=== PATIENT | male | born 1980 | race Caucasian/White ===

== ENCOUNTER 2021-09-22 19:21 | Inpatient (IN) | payer OTHER, SELFPAY ==
--- NOTE | ~2021-09-22 | XR_ITS ---
EXAMINATION: XR lumbar spine 2-3V DATE: 09/26/2021 12:55 INDICATION: Right-sided low back pain TECHNIQUE: Anteroposterior and lateral views of the lumbar spine, and cone-down lateral view of the l umbosacral junction were obtained. COMPARISON: 08/03/2013 FINDINGS: There are 3 mm of unchanged retrolisthesis of L5 on S1. Vertebral body alignment is otherwi se normal. There is no fracture. The vertebral body heights are maintained. There is mild loss of int ervertebral disc space height at L5-S1. IMPRESSION: 1. Mild lumbar spondylosis without acute findings or significant interval change. Reviewed, dictated and finalized at location A. IMPRESSION: 1. Mild lumbar spondylosis without acute findings or significant interval sav orr
--- NOTE | ~2021-09-22 | CT_ITS ---
EXAMINATION: CT abdomen pelvis wo con DATE: 09/25/2021 18:44 INDICATION: Abdominal and flank pain, nephrolithiasis TECHNIQUE: Computed tomography (CT) of the abdomen and pelvis was performed without intravenous contr ast. Automated exposure control and iterative reconstruction technique were employed. The dose-length product was 616.13 mGy-cm. COMPARISON: 09/22/2021. FINDINGS: Lower thorax: Bibasilar atelectasis. Liver: Diffuse fatty infiltration. Biliary/Gallbladder: Gallbladder is normal. Stable common bile duct dilation, to 9 mm. Pancreas: No mass or duct dilation. Spleen: Normal. Adrenals:No mass. Kidneys: Punctate nonobstructive right calculi. No renal mass or hydronephrosis. GI tract: No small or large bowel dilation. Normal appendix. Mesentery/Peritoneum: No ascites, mass, or free air. Retroperitoneum: No mass. Pelvis: The bladder is distended by fluid with mild wall thickening and inflammatory change. Mild pro statomegaly. Subtle 1 mm hyperdensity in the distal right ureter. Soft Tissues: Soft tissues and body wall unremarkable. Bones: No acute osseous finding. IMPRESSION: 1 mm distal right ureteral stone, without significant obstructive uropathy. Bladder wall thickening a nd inflammation, may be secondary to outlet obstruction or cystitis, correlate with urinalysis. Uncha nged hepatic steatosis and extrahepatic biliary duct dilatation. Reviewed, dictated and finalized at location K. IMPRESSION: 1 mm distal right ureteral stone, without significant obstructive uropathy. Albert dder wall thickening and inflammation, may be secondary to outlet obstruction o r cystitis, correlate with urinalysis. Unchanged hepatic steatosis and extrahep atic biliary duct dilatation.
--- NOTE | ~2021-09-22 | NM_ITS ---
EXAMINATION: NM hepatobiliary w pharm DATE: 09/25/2021 09:26 INDICATION: Elevated liver enzymes. Right upper quadrant abdominal pain. COMPARISON: None. TECHNIQUE: 5.5 mCi Tc-99m mebrofenin (Choletec) was administered intravenously. Scintigraphic images of the abdomen were obtained for one hour. 2.0 mcg sincalide (Kinevac) was administered by slow intr avenous infusion, and imaging was continued for 30 minutes. Gallbladder ejection fraction was calcula jodie by the technologist. FINDINGS: There is normal clearance of radiotracer from the blood pool. There is homogeneous tracer uptake by t he liver. Activity progresses to the gallbladder and bowel. The gallbladder ejection fraction (GBEF) is 10% (normal 10-90%, but most patient with gallbladder dysfunction have GBEF < 35% which does over lap with the normal range). IMPRESSION: 1. Gallbladder ejection fraction is at the lowest limit of normal. This could be normal but is also within the range of overlap with gallbladder dysfunction or chronic cholecystitis in the appropriate clinical setting. Reviewed, dictated and finalized at location A.
--- NOTE | ~2021-09-22 | US_ITS ---
EXAMINATION: US abdomen limited DATE: 09/23/2021 09:23 INDICATION: Abdominal pain. TECHNIQUE: Multiple grayscale and Doppler ultrasound images of limited portions of the abdomen were o btained. COMPARISON: CT abdomen and pelvis, 09/22/2021. FINDINGS: Bowel gas obscures visualization of portions of the pancreas. The visualized portions of th e pancreas are unremarkable. The liver is echogenic and enlarged to 20.2 cm. No surface nodularity. N ormal hepatopetal flow in the main portal vein. The gallbladder is normal with no abnormal wall thick ening, pericholecystic fluid or stones. The dilated common bile duct measures 1.0 cm. There was no so nographic Leung sign. IMPRESSION: 1. Steatosis and hepatomegaly. 2. Common bile duct dilation, without identification of obstructing mass or stone. Reviewed, dictated and finalized at location K. IMPRESSION: 1. Steatosis and hepatomegaly. 2. Common bile duct dilation, without identification of obstructing mass or sto ne.
--- NOTE | ~2021-09-22 | XR_ITS ---
EXAMINATION: XR sacrum coccyx min 2V INDICATION: Right lower back pain TECHNIQUE: Two views of the sacrum and coccyx are obtained on three radiographs. COMPARISON: CTs from yesterday and 11/04/2009 FINDINGS: There is mild chronic posterior subluxation of the distal coccygeal segments without change since 2009. No fracture is identified. There is mild lower lumbar spondylosis. The soft tissues are unremarkable. IMPRESSION: 1. No radiographic correlate for the patient's symptoms. Reviewed, dictated and finalized at location A.
--- NOTE | ~2021-09-22 | XR_ITS ---
EXAMINATION: XR chest 1V portable INDICATION: Epigastric abdominal pain TECHNIQUE: Portable AP chest at epigastric pain COMPARISON: 03/15/2007 FINDINGS: The lungs are free of acute opacities. There is no pleural effusion or pneumothorax. The ca rdiomediastinal silhouette is normal. IMPRESSION: 1. No acute cardiopulmonary abnormality. Reviewed, dictated and finalized at location A.
--- NOTE | ~2021-09-22 | MR_ITS ---
EXAMINATION: MR MRCP wo/w con/w 3D wo ind DATE: 09/23/2021 13:36 INDICATION: Epigastric pain TECHNIQUE: Magnetic resonance imaging (MRI) of the abdomen was performed without and with intravenous contrast. Sequences included coronal T2-weighted SS-FSE ARC, coronal T2-weighted FS SS-FSE, coronal T2-weighted 2D FS FIESTA, Water:Coronal LAVA-Flex, sagittal T2-weighted SS-FSE ARC, axial SSFSE ARC, axial 3D DualEcho, axial DWI B=600, axial T1-weighted LAVA, FAT:Coronal LAVA-Flex, and coronal in and opposed phase LAVA-Flex. Thick-slab T2-weighted FRFSE-XL images were obtained for magnetic resonance cholangiopancreatography (MRCP). Maximum intensity projection 3-D reconstructions of the volumetric data were created by the technologist. Postcontrast sequences included a time course of axial T1-weig hted LAVA, FAT:Coronal LAVA-Flex, coronal in and opposed phase LAVA-Flex, and Water:Coronal LAVA-Flex . COMPARISON: CT from yesterday CONTRAST: Multihance, with 20 cc FINDINGS: ABDOMEN MRI: There is loss of hepatic parenchymal signal on opposed phase imaging, consistent with he patic steatosis. There is a 5 mm cyst in the left hepatic lobe. A focal area of fatty sparing is note d in the right hepatic lobe corresponding to the area of soft tissue attenuation seen on the comparis on CT. The spleen, pancreas, gallbladder, and adrenal glands are normal. There are no pathologically enlarged abdominal lymph nodes. No dilated loops of bowel are evident. No abnormal enhancement is pre sent after contrast administration. ABDOMEN MRCP: The mildly dilated common bile duct measures up to 9 mm. No choledocholithiasis is iden tified. There is smooth tapering of the distal common bile duct in the head of the pancreas. The panc reatic duct is normal in course and caliber. IMPRESSION: 1. Mild enlargement of the common bile duct without evidence of mass or stricture. 2. Diffuse hepatic steatosis. Reviewed, dictated and finalized at location A. IMPRESSION: 1. Mild enlargement of the common bile duct without evidence of mass or strictu re. 2. Diffuse hepatic steatosis.
--- NOTE | ~2021-09-22 | CT_ITS ---
EXAMINATION: CT chest abdomen pelvis w con DATE: 09/22/2021 21:01 INDICATION: Abdominal and chest pain TECHNIQUE: Transaxial computed tomographic images of the chest, abdomen, and pelvis were obtained aft er the administration of 100 cc of Omnipaque 300 intravenous contrast. The dose-length product (DLP) was 944.95 mGy-cm. Automated exposure control and iterative reconstruction technique were employed. COMPARISON: 11/14/2009 FINDINGS: CHEST CT: The lungs are free of acute opacities. No pleural effusion or pneumothorax. No pathologically enlarge d thoracic lymph nodes are identified. The heart size is normal. There is mild bilateral gynecomastia . A small amount of fluid is noted in the esophagus. ABDOMEN/PELVIS CT: The liver is diffusely low in attenuation when compared with the spleen, consistent with hepatic stea tosis. There is a 11 mm area of soft tissue attenuation in the right hepatic lobe which could reflect focal fatty sparing. The mildly enlarged common bile duct measures up to 9 mm. The spleen, pancreas, gallbladder, and adrenal glands are normal. There are punctate nonobstructing stones of the right ki dney. No pathologically enlarged abdominal or pelvic lymph nodes are identified. There is no free int raperitoneal gas or evidence of bowel obstruction. The appendix is normal. There is mild lumbar spond ylosis. IMPRESSION: 1. Diffuse hepatic steatosis. 2. Mild enlargement of the common bile duct of unclear etiology. 3. No acute findings in the chest. Reviewed, dictated and finalized at location F.
[2021-09-22 19:25] VITALS: BP 133/99; PULSE 120; RESP 20; TEMP 36.7; O2SAT 98
--- NOTE | 2021-09-22 19:47 | ED.NAVMDI ---
HPI - Nausea/Vomiting/Diarrhea General Chief complaint: Nausea/Vomiting/Diarrhea Stated complaint: vomiting and diarrhea Time Seen by Provider: 09/22/21 19:47 History of Present Illness HPI Narrative: Patient is a 41-year-old male with a history of hypertension presenting to the emergency department for evaluation of a 5-week history of worsening right lower quadrant abdominal pain with radiation to the right flank. Described as sharp, cramping in nature associated with abdominal distention and diarrhea. Patient denies any blood or mucus present in his stool. He denies history of abdominal surgery, ulcerative colitis, Crohn's disease. He denies weight loss, night sweats. No known history of colon cancer. Patient also endorses mild, aching chest pressure which has been intermittent over the past 5 weeks. Patient has not sought evaluation for this pain. He states that his pain increased this morning into this afternoon, prompting his visit this evening. He has been unable to tolerate oral intake today with several episodes of nonbloody, nonbilious emesis. Patient denies dysuria or hematuria. He reports subjective fever, chills. He denies recent sick contacts. Related Data Home Medications Medication Instructions Recorded Confirmed memantine 10 mg tablet 10 mg PO BID 03/09/20 06/22/21 protriptyline 5 mg tablet See Rx Instructions PO TID 03/09/20 06/22/21 Allergies Allergy/AdvReac Type Severity Reaction Status Date / Time No Known Allergies Allergy Mild Verified 06/22/21 10:22 Review of Systems Review of Systems: CONSTITUTIONAL: Reports fever and chills EYES: Denies visual changes, redness, or discharge. ENT: Denies rhinorrhea, congestion, sore throat, or otalgia. CARDIOVASCULAR: Reports intermittent aching chest pain without palpitations or edema RESPIRATORY: Denies cough or dyspnea. GASTROINTESTINAL: Reports abdominal pain with nausea, vomiting, diarrhea GENITOURINARY: Denies dysuria or hematuria. SKIN: Denies rash or itching. MUSCULOSKELETAL: Reports right flank pain without other joint pain or myalgias NEUROLOGIC: Denies headache, numbness, or weakness. [facility] Past Medical History Medical History (Updated 09/22/21 @ 22:53 by Colette Miner MD) Calculus of kidney Chronic daily headache Dyspepsia Elevated liver enzymes Essential (primary) hypertension Hearing loss Memory loss Sleep disorder, shift-work Trigeminal neuralgia of right side of face Family History Family History Grandparent Diabetes mellitus Mother Hypertension Family history of malignant neoplasm of breast Sibling Hypertension Father Family history of renal cell carcinoma Social History Social History Second hand tobacco smoke exposure: No Smoking end date: 04/01/11 Alcohol intake: current Alcohol use details: Occasional Substance use type: does not use Exam Narrative: GENERAL: Awake, alert, conversant, uncomfortable appearing HEAD: Normocephalic, atraumatic. EYES: PERRLA and EOMI. ENT: Nares clear, no rhinorrhea or epistaxis. Mucous membranes moist. NECK: Supple. CHEST: No respiratory distress, breathing even and non labored HEART: Tachycardic rate, sinus rhythm ABDOMEN:Mild distension, no tenderness throughout, hypoactive bowel sounds, no rigidity or guarding EXTREMITIES: Normal range of motion. No edema. SKIN: Warm, dry, no rash. NEURO:No focal deficits. Alert and oriented x3 Course Vital Signs Vital signs: Vital Signs Temperature 36.7 C 09/22/21 19:25 Pulse Rate 120 H 09/22/21 19:25 Respiratory Rate 20 09/22/21 19:25 Blood Pressure 133/99 H 09/22/21 19:25 Pulse Oximetry 98 09/22/21 19:25 Oxygen Delivery Room Air 09/22/21 19:25 Temperature 36.7 C 09/22/21 19:25 Pulse Rate 120 H 09/22/21 19:25 Respiratory Rate 20 09/22/21 19:25 Blood Pressure 133/99 H 09/22/21 1
--- NOTE | 2021-09-22 20:09 | ECG_ITS ---
Measurements Intervals [place] Rate: 106 P: 55 PA: 140 QRS: 44 QRSD: 96 T: 45 QT: 318 QTc: 422 Interpretive Statements SINUS TACHYCARDIA POSSIBLE LEFT ATRIAL ENLARGEMENT [-0.1mV P WAVE IN V1/V2] LEFTWARD AXIS ABNORMAL RHYTHM ECG NO PREVIOUS ECG AVAILABLE FOR COMPARISON Electronically Signed On 09-23-2021 7:51:31 CDT by Holland Wilhelm M.D.
[2021-09-22] MEDS: ONDANSETRON INJ 4 MG/2 ML VIAL IV PUSH (20:21)
[2021-09-22] MEDS: SODIUM CHLORIDE 0.9% IV 1,000 ML 999 ML IV CONT ×2 (20:21→21:54)
[2021-09-22] MEDS: MORPHINE SULFATE (*CRX) 4 MG/ML INJ IV PUSH (20:21)
[2021-09-22 20:32] LABS: Basophils Percent Auto 0.2 % (0.2-1.2); Eosinophils Absolute Auto 0.1 K/mm3 (0-0.3); Eosinophils Percent Auto 0.8 % (0-4.4); Hematocrit 48.1 % (42.0-52.0); Hemoglobin 16.4 g/dL (14.0-18.0); Immature Granulocyte Absolute 0.04 K/mm3 (0.00-0.031); Immature Granulocyte Percent A 0.4 % (0-0.5); Lymphocytes Absolute Auto 0.42 K/mm3 (0.9-3.2); Lymphocytes Percent Auto 3.8 % (18.3-44.2); Mean Corpuscular HGB Conc 34.1 g/dl (32-36); Mean Corpuscular Hemoglobin 31.5 pg (26-34); Mean Corpuscular Volume 92.5 fl (80-100); Mean Platelet Volume 9.3 fl (7.4-10.4); Monocytes Absolute Auto 0.6 K/mm3 (0.1-0.6); Monocytes Percent Auto 5.3 % (2.6-8.5); Neutrophils Percent Auto 89.5 % (45.5-73.1); Platelet Count Result 224 k/mm3 (150-375); Red Cell Distribution Width 12.9 % (11.5-14.5); White Blood Count 11.1 K/mm3 (4.5-10.0)
[2021-09-22 20:42] LABS: Alanine Aminotransferase 203 U/L (6-50); Albumin Level 4.9 g/dL (3.5-5.1); Alkaline Phosphatase 76 U/L (38-126); Anion Gap 11 mmol/L (8-16); Aspartate Amino Transferase 86 U/L (17-59); Bilirubin,Total 1.2 mg/dL (0.2-1.3); Blood Urea Nitrogen 16 mg/dL (9-20); Calcium 9.2 mg/dL (8.4-10.2); Carbon Dioxide 25 mmol/L (22-30); Chloride 98 mmol/L (98-107); Estimated CRCL calculation 96 ml/min; Estimated Glomerular Filt Rate > 60; Glucose 138 mg/dL (65-110); Lipase 72 U/L (23-300); Potassium 4.4 mmol/L (3.4-5.0); Sodium 134 mmol/L (137-145)
[2021-09-22 20:44] LABS: Appearance Urine Clear (Clear); Bilirubin Urine 1+ (Negative); Blood Urine Trace-lysed (Negative); Color Urine Yellow (Yellow); Glucose Urine UA Negative (Negative); Ketones Urine Trace mg/dL (Negative); Leukocyte Esterase Ur Negative LEU/UL (Negative); Nitrate Urine Negative (Negative); Protein Urine Negative (Negative); Urobilinogen Urine 0.2 mg/dL (<2.0); pH Urine 5.5 (5.0-9.0)
[2021-09-22 20:47] LABS: Mucus Urine Rare /lpf; RBC Urine 0-2 /hpf (0-2); WBC Urine 0-3 /hpf
[2021-09-22 20:53] LABS: Add Urine Microscopic? YES
[2021-09-22 20:59] LABS: Troponin I < 0.012 ng/mL (0.000-0.034)
--- NOTE | 2021-09-22 22:53 | PM.IMHP ---
H&P: HPI History of Present Illness Date/Time: 09/22/21 22:53 Chief Complaint: Abdominal pain Narrative: This is a 41-year-old male with past medical history significant for hypertension, cluster headache, patient presents to the emergency room due to nausea, vomiting, abdominal pain which is in the epigastric area with radiation to the left quadrant, patient denies any fevers, rigors, chills, coffee-ground emesis, bright red blood per rectum, hematemesis, patient has been unable to keep anything down this has been happening for in the last day or so. Preliminary workup was significant for CT of abdomen and pelvis with enlargement of common bile duct, and hepatic steatosis. Patient rates the pain at 9/10 in intensity. Patient denies any weight loss, any changes in his stool character. Patient has been admitted for further evaluation, management and treatment. Review of Systems Review of Systems: Nausea, vomiting, epigastric abdominal pain. Constitutional: Constitutional: Denies chills, Denies fever(s) and Denies night sweats Eyes: Eyes: Denies change in vision ENT: Denies dysphagia, Denies vertigo, Denies dizziness and Denies odynophagia Cardiovascular: Cardiovascular: Denies chest pain, Denies lightheadedness, Denies palpitations and Denies dyspnea on exertion Respiratory: Respiratory: Denies chest congestion, Denies cough and Denies excessive phlegm production Gastrointestinal: Gastrointestinal: Reports abdominal pain, Denies melena, Denies hematochezia, Denies coffee ground emesis, Denies dyspepsia, Denies heartburn, Reports nausea and Reports vomiting Genitourinary: Genitourinary: Reports no additional male genitourinary complaints and Reports as per HPI Musculoskeletal: Musculoskeletal: Reports back pain, Denies myalgias and Denies joint swelling Integumentary/Breasts: Skin/Breast: Denies rash Neurologic: Denies focal weakness and Denies Sensory deficit (Neuro) Psychiatric: Psychiatric: Reports no additional psychiatric complaints and Reports as per HPI Endocrine: Endocrine: Denies cold intolerance, Denies fatigue, Denies heat intolerance, Denies polyphagia, Denies polydipsia, Denies polyuria and Denies palpitations Hematologic/Lymphatic: Hematologic/Lymphatic: Reports no additional hematologic/lymphatic complaints and Reports as per HPI Allergic/Immunologic: Allergic/Immunologic: Reports no additional allergic/immunologic complaints and Reports as per HPI [facility] Past Medical History Medical History (Updated 09/23/21 @ 03:07 by Ricky Avery MD) Calculus of kidney Chronic daily headache Dyspepsia Elevated liver enzymes Essential (primary) hypertension Hearing loss Memory loss 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 carcinoma Social History Social History Smoking packs per day: 1 Smoking cigarettes per day: 20.0 Years smoked: 7 Smoking pack-years: 7.00 Smoking status: Former smoker Tobacco type: cigarettes Second hand tobacco smoke exposure: No Smoking end date: 04/01/11 Alcohol intake: current Drinks per week: 30 Alcohol use details: Occasional Substance use: never Substance use type: does not use Last use: 09/22/21 Spiritual care concerns: No Meds Home Medications and Allergies Home Medications Medication Instructions Recorded Confirmed Type memantine 10 mg tablet 10 mg PO BID 03/09/20 09/23/21 History protriptyline 5 mg tablet 5 mg PO DAILY 03/09/20 09/23/21 History hydrochlorothiazide 12.5 mg tablet 12.5 mg PO DAILY #90 tabs 02/15/21 09/23/21 Rx atenolol 100 mg tablet 100 mg PO DAILY 09/23/21 0
--- NOTE | 2021-09-22 23:01 | ECG_ITS ---
Measurements Intervals [place] Rate: 108 P: 51 AL: 161 QRS: 2 QRSD: 92 T: 21 QT: 319 QTc: 429 Interpretive Statements SINUS TACHYCARDIA POSSIBLE LEFT ATRIAL ENLARGEMENT [-0.1mV P WAVE IN V1/V2] ABNORMAL RHYTHM ECG COMPARED TO ECG 09/22/2021 20:50:57 NO SIGNIFICANT CHANGES Electronically Signed On 09-23-2021 7:56:11 CDT by Holland Wilhelm M.D.
[2021-09-22] MEDS: HYDROmorphone HCL INJ (*CRX) 1 MG/ML SYR 0.5 MG IV PUSH (23:08)
[2021-09-22] MEDS: LACTATED RINGERS 1,000 ML 125 ML IV CONT (23:14)
[2021-09-23] VITALS (9 sets, daily range): BP systolic 117–154; BP diastolic 77–97; PULSE 76–106; RESP 17–18; TEMP 36.2–37.2; O2SAT 95–100; BMI 28.4; BMI 28.1
[2021-09-23 00:04] LABS: Troponin I < 0.012 ng/mL (0.000-0.034)
--- NOTE | 2021-09-23 00:15 | ADMGEN ---
This patient, Kiko Monroy, was admitted to 2 Medical Room 257-01. Patient/family oriented to hospital policies and general routines including ID bracelet, bed and alarms, visiting hours, pain management, procedures, bathroom and other care routines, personal items, smoking policy, room service/diet, and visiting hours. Information on how to activate the Rapid Response Team has been discussed. Patient/Family are encouraged to report perceived risks to care and to ask questions if they do not understand what they are told or what they should do.
[2021-09-23] MEDS: MORPHINE SULFATE (*CRX) 4 MG/ML INJ IV PUSH (01:11)
[2021-09-23] MEDS: HYDROmorphone HCL INJ (*CRX) 1 MG/ML SYR IV PUSH ×4 (08:48→22:57)
[2021-09-23] MEDS: LACTATED RINGERS 1,000 ML 125 ML IV CONT ×2 (08:51→18:15)
--- NOTE | 2021-09-23 11:32 | PM.IMPN ---
Progress Note: A&P Assessment and Plan (1) Acute epigastric pain: Code(s): R10.13 - Epigastric pain <Yesi Anand MARLOMarilee - Last Filed: 09/23/21 11:51> Status: Acute <MARLO GilbertBlaireC - Last Filed: 09/23/21 11:51> Assessment and Plan: patient reports significant abdominal pain that improves with pain medication - CT of abdomen pelvis mentions hepatic steatosis and mild common bile duct dilation - serum bilirubin is normal as well as alk phos but he does have 1+ bilirubin in his urine. AST and ALT elevated. Lipase normal. - right upper quadrant ultrasound pending - consider MRCP - due to his night sweats and chills, will order blood cultures. will hold off on antibiotics as there does not seem to be any other sign of infection at this time. if he develops a temperature this can be re-evaluated - GI consult - can advance diet as tolerated after GI evaluation. Patient was told that he was getting an endoscopy this morning according to what he was told in the ER? <Yesi AnandARTEM - Last Filed: 09/23/21 11:51> (2) Moderate nausea and vomiting: Code(s): R11.2 - Nausea with vomiting, unspecified <Yesi AnandARTEM - Last Filed: 09/23/21 11:51> Status: Acute <Yesi AnandARTEM - Last Filed: 09/23/21 11:51> Assessment and Plan: improved <Yesi AnandARTEM - Last Filed: 09/23/21 11:51> (3) Transaminitis: Code(s): R74.01 - Elevation of levels of liver transaminase levels <Yesi AnandARTEM - Last Filed: 09/23/21 11:51> Status: Acute <Yesi AnandARTEM - Last Filed: 09/23/21 11:51> Assessment and Plan: Likely secondary to hepatic steatosis - patient has a history of ALT abnormality back in 2018 <Yesi LoveARTEM mclaughlin - Last Filed: 09/23/21 11:51> (4) Essential (primary) hypertension: Code(s): I10 - Essential (primary) hypertension <Yesi AJovanna Lovemus, PA-C - Last Filed: 09/23/21 11:51> Status: Acute <Yesi AJovanna Lovemus, PA-C - Last Filed: 09/23/21 11:51> Assessment and Plan: last blood pressure 117/77 - will resume home medications <Yesi AJovanna Lovemus, PA-C - Last Filed: 09/23/21 11:51> (5) Sleep disorder, shift-work: Code(s): G47.26 - Circadian rhythm sleep disorder, shift work type <Yesi AJovanna Cadmus, PA-C - Last Filed: 09/23/21 11:51> Status: Acute <Yesi AJovanna Cadmus, PA-C - Last Filed: 09/23/21 11:51> Assessment and Plan: Unchanged <Yesi AJovanna Cadmus, PA-C - Last Filed: 09/23/21 11:51> (6) Trigeminal neuralgia of right side of face: Code(s): G50.0 - Trigeminal neuralgia <Yesi AJovanna Cadmus, PA-C - Last Filed: 09/23/21 11:51> Status: Acute <Yesi AJovanna Cadmus, PA-C - Last Filed: 09/23/21 11:51> Assessment and Plan: Unchanged <Yesi AJovanna Cadmus, PA-C - Last Filed: 09/23/21 11:51> Assessment and Plan: patient was placed on telemetry due to tachycardia and possible chest pain. Tachycardia was likely due to pain. Troponins negative x2 in no further chest pain. No further workup is indicated at this time and can be re-evaluated if he develops pain. Cardiac etiology seems less likely <Yesi Bernardo Lovemus, PA-C - Last Filed: 09/23/21 11:51> Additional Plan I, Ev Petersen MD, have not seen or examined this patient. The patient was seen and examined by the midlevel/TURBINE ATTENDANT/PA. The plan of care was formulated and executed independently by the midlevel/TURBINE ATTENDANT/PA. <Ev Petersen MD - Last Filed: 09/28/21 00:41> Time Spent With Patient Time with patient: 25 - 35 minutes <Yesi Angie. Cadmus, PA-C - Last Filed: 09/23/21 11:51> Subjective Date/time seen: 09/23/21 11:32 <Yesi Anand PA-C - Last Filed: 09/23/21 11:51> Interval history: Pt is a 41 y/o male here for RUQ abdominal pain with nausea and vomiting. Pt was seen today with family at bedside. He states his RUQ pain is bett
[2021-09-23] MEDS: FAMOTIDINE 20 MG/2 ML VIAL IV PUSH ×2 (13:48→21:43)
[2021-09-23] MEDS: atenoloL 50 MG TABLET 100 MG PO (13:48)
--- NOTE | 2021-09-23 14:37 | WPDGICN ---
Assessment and Plan Assessment and plan (1) Moderate nausea and vomiting: Code(s): R11.2 - Nausea with vomiting, unspecified Status: Acute Assessment and Plan: new onset antiemetics, ppi pending mrcp may need egd +/- colonoscopy if mrcp unremarkable (also has been having lower abdominal pain for few months) (2) Acute epigastric pain: Code(s): R10.13 - Epigastric pain Status: Acute Assessment and Plan: medical treatment (3) Transaminitis: Code(s): R74.01 - Elevation of levels of liver transaminase levels Status: Acute Assessment and Plan: h/o fatty liver will get hepatitis panel pending MRCP to assess biliary system +/- HIDA scan based on clinical course (4) Common bile duct dilatation: Code(s): K83.8 - Other specified diseases of biliary tract Status: Acute Assessment and Plan: MRCP pending (5) Dyspepsia: Code(s): R10.13 - Epigastric pain Status: Acute GI Consult Note Consult date/time: 09/23/21 14:37 Reason for consult: abdominal pain, elevated liver enzymes HPI: Kiko Monroy is a 41 year old male with past medical history significant for hypertension, cluster headache. He came to the emergency room due to nausea, vomiting, abdominal pain. He has been having lower abdominal pain for 4-5 months actually about 3 weeks ago also had intense pain and lower abdomen but resolved, pain has been intermittent but he came this time with worsening epigastric area with radiation to the left quadrant. This time associated with n/v and diarrhea. CT of abdomen and pelvis reviewed and showed mild enlargement of common bile duct 9 mm, and hepatic steatosis.? Patient rates the pain at 9/10 in intensity. transaminases 80-200, normal bili. Denies hepatitis. Review of Systems Review of Systems: Nausea, vomiting, epigastric abdominal pain. Constitutional: Constitutional: Denies chills, Denies fever(s) and Denies night sweats Eyes: Eyes: Denies change in vision ENT: Denies dysphagia, Denies vertigo, Denies dizziness and Denies odynophagia Cardiovascular: Cardiovascular: Denies chest pain, Denies lightheadedness, Denies palpitations and Denies dyspnea on exertion Respiratory: Respiratory: Denies chest congestion, Denies cough and Denies excessive phlegm production Gastrointestinal: Gastrointestinal: Reports abdominal pain, Denies melena, Denies hematochezia, Denies coffee ground emesis, Denies dyspepsia, Denies heartburn, Reports nausea and Reports vomiting Genitourinary: Genitourinary: Reports no additional male genitourinary complaints and Reports as per HPI Musculoskeletal: Musculoskeletal: Reports back pain, Denies myalgias and Denies joint swelling Integumentary/Breasts: Skin/Breast: Denies rash Neurologic: Denies focal weakness and Denies Sensory deficit (Neuro) Psychiatric: Psychiatric: Reports no additional psychiatric complaints and Reports as per HPI Endocrine: Endocrine: Denies cold intolerance, Denies fatigue, Denies heat intolerance, Denies polyphagia, Denies polydipsia, Denies polyuria and Denies palpitations Hematologic/Lymphatic: Hematologic/Lymphatic: Reports no additional hematologic/lymphatic complaints and Reports as per HPI Allergic/Immunologic: Allergic/Immunologic: Reports no additional allergic/immunologic complaints and Reports as per HPI PMFSH Past Medical History Medical History (Updated 09/23/21 @ 03:07 by Ricky Avery MD) Calculus of kidney Chronic daily headache Dyspepsia Elevated liver enzymes Essential (primary) hypertension Hearing loss Memory loss 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
[2021-09-24 04:06] VITALS: BP 122/61; PULSE 69; RESP 17; TEMP 36.2; O2SAT 98
[2021-09-24] MEDS: LACTATED RINGERS 1,000 ML 125 ML IV CONT ×2 (04:09→17:13)
[2021-09-24] MEDS: HYDROmorphone HCL INJ (*CRX) 1 MG/ML SYR IV PUSH ×5 (05:06→23:45)
[2021-09-24 05:42] LABS: Basophils Percent Auto 0.5 % (0.2-1.2); Eosinophils Absolute Auto 0.2 K/mm3 (0-0.3); Eosinophils Percent Auto 4.6 % (0-4.4); Hematocrit 40.6 % (42.0-52.0); Hemoglobin 13.7 g/dL (14.0-18.0); Immature Granulocyte Absolute 0.01 K/mm3 (0.00-0.031); Immature Granulocyte Percent A 0.3 % (0-0.5); Lymphocytes Absolute Auto 1.17 K/mm3 (0.9-3.2); Lymphocytes Percent Auto 31.5 % (18.3-44.2); Mean Corpuscular HGB Conc 33.7 g/dl (32-36); Mean Corpuscular Hemoglobin 31.6 pg (26-34); Mean Corpuscular Volume 93.8 fl (80-100); Mean Platelet Volume 9.2 fl (7.4-10.4); Monocytes Absolute Auto 0.6 K/mm3 (0.1-0.6); Monocytes Percent Auto 15.4 % (2.6-8.5); Neutrophils Absolute Auto 1.8 K/mm3 (1.3-6.7); Neutrophils Percent Auto 47.7 % (45.5-73.1); Platelet Count Result 172 k/mm3 (150-375); Red Blood Count 4.33 M/mm3 (4.6-6.20); Red Cell Distribution Width 12.5 % (11.5-14.5); White Blood Count 3.7 K/mm3 (4.5-10.0)
[2021-09-24 05:53] LABS: Alanine Aminotransferase 130 U/L (6-50); Albumin Level 3.8 g/dL (3.5-5.1); Alkaline Phosphatase 55 U/L (38-126); Anion Gap 4 mmol/L (8-16); Aspartate Amino Transferase 52 U/L (17-59); Bilirubin,Total 0.5 mg/dL (0.2-1.3); Blood Urea Nitrogen 7 mg/dL (9-20); Calcium 8.4 mg/dL (8.4-10.2); Carbon Dioxide 29 mmol/L (22-30); Chloride 102 mmol/L (98-107); Estimated CRCL calculation 106 ml/min; Estimated Glomerular Filt Rate > 60; Glucose 96 mg/dL (65-110); Lipase 87 U/L (23-300); Sodium 135 mmol/L (137-145)
[2021-09-24 06:32] LABS: Hepatitis B Surface Antigen Negative (Negative)
[2021-09-24 06:37] LABS: HAV RESULT Negative (Negative); Hepatitis B Core IgM Result Negative (Negative)
[2021-09-24 06:44] LABS: HIV 1/2 Ab P24 Ag Result Negative (Negative)
[2021-09-24 06:49] LABS: Hepatitis C Virus Antibody Negative (Negative)
[2021-09-24 08:26] VITALS: PULSE 69
[2021-09-24] MEDS: atenoloL 50 MG TABLET 100 MG PO (08:26)
[2021-09-24] MEDS: FAMOTIDINE 20 MG/2 ML VIAL IV PUSH ×2 (08:27→20:26)
--- NOTE | 2021-09-24 13:16 | WPDGIPROGNO ---
Progress Note: A&P Assessment and Plan (1) Right lateral abdominal pain: Code(s): R10.9 - Unspecified abdominal pain Status: Acute Assessment and Plan: mrcp reviewed, no stones liver enzymes coming down, he also admits drinking alcohol hepatitis panel negative will get HIDA scan but also egd/colonoscopy to rule out any other gi condition (2) Transaminitis: Code(s): R74.01 - Elevation of levels of liver transaminase levels Status: Acute Assessment and Plan: hida scan (3) Moderate nausea and vomiting: Code(s): R11.2 - Nausea with vomiting, unspecified Status: Acute Assessment and Plan: improved (4) Alcohol use: Code(s): Z72.89 - Other problems related to lifestyle Status: Acute Assessment and Plan: cessation (5) Elevated liver enzymes: Code(s): R74.8 - Abnormal levels of other serum enzymes Status: Acute Subjective Date/time seen: 09/24/21 13:16 Interval history: still with pain in ruq/rlq with radiation to Rt back, MRCP reviewed with him and , never had scopes. Patient says that he drinks moderately Review of Systems Review of Systems: Nausea, vomiting, epigastric abdominal pain. Constitutional: Constitutional: Denies chills, Denies fever(s) and Denies night sweats Eyes: Eyes: Denies change in vision ENT: Denies dysphagia, Denies vertigo, Denies dizziness and Denies odynophagia Cardiovascular: Cardiovascular: Denies chest pain, Denies lightheadedness, Denies palpitations and Denies dyspnea on exertion Respiratory: Respiratory: Denies chest congestion, Denies cough and Denies excessive phlegm production Gastrointestinal: Gastrointestinal: Reports abdominal pain, Denies melena, Denies hematochezia, Denies coffee ground emesis, Denies dyspepsia, Denies heartburn, Reports nausea and Reports vomiting Genitourinary: Genitourinary: Reports no additional male genitourinary complaints and Reports as per HPI Musculoskeletal: Musculoskeletal: Reports back pain, Denies myalgias and Denies joint swelling Integumentary/Breasts: Skin/Breast: Denies rash Neurologic: Denies focal weakness and Denies Sensory deficit (Neuro) Psychiatric: Psychiatric: Reports no additional psychiatric complaints and Reports as per HPI Endocrine: Endocrine: Denies cold intolerance, Denies fatigue, Denies heat intolerance, Denies polyphagia, Denies polydipsia, Denies polyuria and Denies palpitations Hematologic/Lymphatic: Hematologic/Lymphatic: Reports no additional hematologic/lymphatic complaints and Reports as per HPI Allergic/Immunologic: Allergic/Immunologic: Reports no additional allergic/immunologic complaints and Reports as per HPI Exam Const: General: comfortable, no acute distress, well developed, alert and awake Nutritional Appearance: average body habitus Orientation/consciousness: patient oriented x3 HENMT: Head: normal to inspection, normocephalic and atraumatic Ears: hearing grossly normal bilaterally Face and sinus: normal facial exam Eyes: General: appearance normal, both eyes and all related structures Pupils: Equal, round and reactive pupils present EOM: EOMs intact bilaterally Neck: Neck: full ROM Lymphatic: no lymphadenopathy noted Resp: Effort & Inspection: normal respiratory effort and able to speak in complete sentences Auscultation: clear to auscultation bilaterally Cardio: Jugular venous distension: no JVD Rate: regular rate Rhythm: regular rhythm Heart sounds: S1 normal heart sound present and S2 normal heart sound present GI: Inspection: normal to inspection GI Palp: Yes Soft to palpation, Yes Tenderness to palpation present (GI) (mild ttp in ruq, no rebound) and No Guarding due to palpation present (GI) Skin: Rashes: no rashes Wounds: no wounds Neuro: General: patient oriented x3 and CN's II-XI intact bilaterally Cranial nerves: Yes CN's II-XII intact bilaterally Cognition (Neuro): normal cognition Speech:
--- NOTE | 2021-09-24 13:58 | PHAR ---
DRUG NAME: PROTRIPTYLINE HYDROCHLORIDE INGREDIENTS: PROTRIPTYLINE HYDROCHLORIDE -- 10 MG RELATED DOCUMENTS: DRUGDEX EVALUATIONS - PROTRIPTYLINE COLOR: WHITE SHAPE: [place] IMPRINT: [id number] FORM: ORAL TABLET
[2021-09-24 14:00] VITALS: BP 167/99; PULSE 84; RESP 16; TEMP 36.2; O2SAT 99
--- NOTE | 2021-09-24 15:10 | PM.IMPN ---
Progress Note: A&P Assessment and Plan (1) Acute epigastric pain: Code(s): R10.13 - Epigastric pain Status: Acute Assessment and Plan: Patient reports significant abdominal pain that improves with pain medication - CT of abdomen pelvis mentions hepatic steatosis and mild common bile duct dilation - serum bilirubin is normal as well as alk phos but he does have 1+ bilirubin in his urine. AST and ALT elevated. Lipase normal. - abdominal ultrasound with steatosis and hepatomegaly, common bile duct dilation without obstructing mass or stone - MRCP also with hepatic steatosis and mild enlargement of the common bile duct - HIDA scan pending - Given complaints of sweats/chills, he was started on IV Zosyn on 09/23. Continue at this time pending further workup. Blood cultures pending. Remains afebrile, no leukocytosis. - Full liquid diet. NPO at midnight for EGD/colonoscopy tomorrow (2) Moderate nausea and vomiting: Code(s): R11.2 - Nausea with vomiting, unspecified Status: Acute Assessment and Plan: Resolved today - Plan as above (3) Transaminitis: Code(s): R74.01 - Elevation of levels of liver transaminase levels Status: Acute Assessment and Plan: Likely secondary to diffuse hepatic steatosis - Patient also reports regular alcohol use (30 drinks per week) - AST normalized today. ALT improved - Alk-phos within normal limits. Normal total bilirubin - Dietary and lifestyle changes - Alcohol reduction - Hepatitis panel negative (4) Essential (primary) hypertension: Code(s): I10 - Essential (primary) hypertension Status: Acute Assessment and Plan: Blood pressures have been slightly elevated, likely due to pain. Last BP 167/99 - Continue home atenolol and hydrochlorothiazide Subjective Date/time seen: 09/24/21 15:10 Interval history: Date of service: 09/24/2021 Kiko Monroy is a 41-year-old male with a history of hypertension who is seen in follow-up for abdominal pain, nausea, vomiting. He is still having pretty significant abdominal discomfort today. States his pain starts in the right flank and radiates all the way across the epigastrium. This pain is been off and on for about 5 weeks, occurring intermittently with associated loss of appetite. About 2 days ago he developed diarrhea and emesis followed by severe abdominal cramping, sweats, and chills. His notes that over the past couple days he has been appearing very pale and his color has been off. Today he continues to endorse right flank and epigastric pain but he is a bit more comfortable at this time. Denies nausea or vomiting at this time. He is tolerating liquids. His last bowel movement was 2 days ago when he had diarrhea. No further episodes of diarrhea. He states his urine has been somewhat foamy for several days to weeks. He denies dysuria, hematuria, urgency, or frequency. Notes that approximately 2 weeks ago he had a sore throat and was treated with amoxicillin for presumed strep throat, though he did not have a test. He denies sore throat or any upper respiratory symptoms at this time. Review of Systems Review of Systems: All systems reviewed & are unremarkable except as noted in HPI and below Exam Narrative: General: Well-nourished, well-appearing 41-year-old male, sitting up in bed, comfortable, NARD Neuro: awake, alert and oriented x4, speech clear, no focal neuro deficits noted HEENMT: normocephalic, atraumatic, EOMI, sclerae anicteric Respiratory: clear to auscultation bilaterally, nonlabored breathing Cardio: regular rate, regular rhythm with S1-S2 Abdomen: nondistended, normoactive bowel sounds, soft, diffusely tender to palpation, no rigidity or guarding Extremities: no edema, erythema, or tenderness to palpation, DP pulses 2+ bilaterally Skin: no rashes or lesions, warm and dry Psych: appropriate mood and affect, judgment and insight intact Obje
[2021-09-24] MEDS: BISACODYL 5 MG TABLET EC 20 MG PO (17:11)
[2021-09-24] MEDS: PEG (High)/E-LYTE SOLN 4,000 ML BTL 4000 ML PO (17:14)
[2021-09-24 19:38] VITALS: BP 152/97; PULSE 71; RESP 18; TEMP 36.3; O2SAT 97
[2021-09-24] MEDS: ONDANSETRON INJ 4 MG/2 ML VIAL IV PUSH (21:17)
[2021-09-25] VITALS (8 sets, daily range): BP systolic 93–146; BP diastolic 51–90; PULSE 55–80; RESP 18–21; TEMP 35.9–36.4; O2SAT 98–100
[2021-09-25] MEDS: HYDROmorphone HCL INJ (*CRX) 1 MG/ML SYR IV PUSH ×4 (01:13→22:06)
[2021-09-25] MEDS: MAGNESIUM CITRATE 300 ML BTL PO (03:07)
[2021-09-25 05:20] LABS: Hematocrit 43.4 % (42.0-52.0); Hemoglobin 14.7 g/dL (14.0-18.0); Mean Corpuscular HGB Conc 33.9 g/dl (32-36); Mean Corpuscular Hemoglobin 31.7 pg (26-34); Mean Corpuscular Volume 93.5 fl (80-100); Platelet Count Result 199 k/mm3 (150-375); Red Blood Count 4.64 M/mm3 (4.6-6.20); Red Cell Distribution Width 12.5 % (11.5-14.5); White Blood Count 5.4 K/mm3 (4.5-10.0)
[2021-09-25 05:40] LABS: Anion Gap 6 mmol/L (8-16); Blood Urea Nitrogen 4 mg/dL (9-20); Calcium 9.2 mg/dL (8.4-10.2); Carbon Dioxide 30 mmol/L (22-30); Chloride 101 mmol/L (98-107); Estimated CRCL calculation 96 ml/min; Estimated Glomerular Filt Rate > 60; Glucose 102 mg/dL (65-110); Potassium 4.1 mmol/L (3.4-5.0); Sodium 137 mmol/L (137-145)
[2021-09-25] MEDS: LACTATED RINGERS 1,000 ML 90 ML IV CONT (05:51)
[2021-09-25 08:16] LABS: Alanine Aminotransferase 122 U/L (6-50); Albumin Level 4.1 g/dL (3.5-5.1); Alkaline Phosphatase 56 U/L (38-126); Aspartate Amino Transferase 54 U/L (17-59); Bilirubin,Total 0.3 mg/dL (0.2-1.3)
[2021-09-25] MEDS: atenoloL 50 MG TABLET 100 MG PO (09:29)
[2021-09-25] MEDS: FAMOTIDINE 20 MG/2 ML VIAL IV PUSH ×2 (09:30→20:01)
--- NOTE | 2021-09-25 10:19 | PM.IMPN ---
Progress Note: A&P Assessment and Plan (1) Acute epigastric pain: Code(s): R10.13 - Epigastric pain Status: Acute Assessment and Plan: Patient reports significant abdominal pain that improves with pain medication - CT of abdomen pelvis mentions hepatic steatosis and mild common bile duct dilation - serum bilirubin is normal as well as alk phos but he does have 1+ bilirubin in his urine. ALT elevated. Lipase normal. - abdominal ultrasound with steatosis and hepatomegaly, common bile duct dilation without obstructing mass or stone - MRCP also with hepatic steatosis and mild enlargement of the common bile duct - HIDA scan showed gallbladder EF at 10%, lowest limit of normal. Could indicate chronic cholecystitis. Discussed case with general surgeon, Dr. Conner. Will plan for outpatient referral to discuss elective cholecystectomy. - Given complaints of sweats/chills, he was started on IV Zosyn on 09/23 for coverage of possible acute cholecystitis, cholangitis, other occult infection. Continue at this time pending further workup. Blood cultures pending. Remains afebrile, no leukocytosis. Infection seems less likely at this time and if EGD/Colonoscopy without concerns for infection will dc abx today. - Awaiting EGD and colonoscopy this afternoon. (2) Moderate nausea and vomiting: Code(s): R11.2 - Nausea with vomiting, unspecified Status: Acute Assessment and Plan: Resolved - Plan as above (3) Transaminitis: Code(s): R74.01 - Elevation of levels of liver transaminase levels Status: Acute Assessment and Plan: Likely secondary to diffuse hepatic steatosis - Patient also reports regular alcohol use (30 drinks per week) - AST normalized. ALT trending down - Alk-phos within normal limits. Normal total bilirubin - Dietary and lifestyle changes - Alcohol reduction - Hepatitis panel negative (4) Essential (primary) hypertension: Code(s): I10 - Essential (primary) hypertension Status: Acute Assessment and Plan: Blood pressures have been slightly elevated, likely due to pain. Last BP 143/81 - Continue home atenolol and hydrochlorothiazide Subjective Date/time seen: 09/25/21 10:19 Interval history: Date of service: 09/25/2021 Kiko Monroy is a 41-year-old male with a history of hypertension who is seen in follow-up for abdominal pain, nausea, vomiting. He is feeling about the same today, maybe a little bit better. He had trouble with prep for his colonoscopy last night. He states he believes he drink it too fast and he had projectile emesis that he states was so forceful that he was spitting up blood after. He denied bloody emesis. He denied blood in his stools. He was able to re-attempt the prep and he states he has been having clear liquid stools this morning. This morning his pain was about 4-5/10 and now he states he is resting comfortably. Pain is still in the right lateral flank, wrapping around to mid and epigastric area. He also describes some right-sided low back pain that he states also wraps around to the front. He believes he passed a kidney stone yesterday evening. He had sudden onset of significant burning and pain with urination but promptly resolved after urinating. He denied hematuria. He did not visualize the stone. No dysuria today. He denies fever, chills, sweats. No further nausea or vomiting today. Review of Systems Review of Systems: All systems reviewed & are unremarkable except as noted in HPI and below Exam Narrative: General: Well-nourished, well-appearing 41-year-old male, sitting up in bed, comfortable, NARD Neuro: awake, alert and oriented x4, speech clear, no focal neuro deficits noted HEENMT: normocephalic, atraumatic, EOMI, sclerae anicteric Respiratory: clear to auscultation bilaterally, nonlabored breathing Cardio: regular rate, regular rhythm with S1-S2 Abdomen: nondistended, normoactive bowel sound
--- NOTE | 2021-09-25 13:50 | PC.NURSE ---
Patient to GI lab per wheelchair 09/25/21 [id number].
[2021-09-25] MEDS: LACTATED RINGERS 1,000 ML 150 ML IV CONT (14:01)
--- NOTE | 2021-09-25 14:42 | WPDANESEPPF ---
Anes - Initial Pre Proc Eval Procedure: Operation Date: 09/25/21 14:45 Proposed Procedures p Esophagogastroduodenoscopy & Colonoscopy - Rich Rhodes MD Date/Time: 09/25/21 14:42 Surgeon: Emy Hayward PA-C Pre Op Diagnosis: Dehydration,Rt Sided Abd Pain,Biliary Ductal Dilat Patient Data Age: 41 Gender: M Height: 1.85 m Weight: 96.9 kg Last Vital Signs Temp 36.2 C L 09/25/21 14:01 Pulse 55 L 09/25/21 14:01 Resp 18 09/25/21 14:01 BP 138/90 09/25/21 14:01 Pulse Ox 98 09/25/21 14:01 O2 Del Method Room Air 09/25/21 14:01 Allergies Allergy/AdvReac Type Severity Reaction Status Date / Time No Known Allergies Allergy Mild Verified 09/23/21 00:56 Home Medications Medication Instructions Recorded Confirmed Type memantine 10 mg tablet 10 mg PO BID 03/09/20 09/23/21 History protriptyline 5 mg tablet 5 mg PO DAILY 03/09/20 09/23/21 History hydrochlorothiazide 12.5 mg tablet 12.5 mg PO DAILY #90 tabs 02/15/21 09/23/21 Rx atenolol 100 mg tablet 100 mg PO DAILY 09/23/21 09/23/21 History Laboratory Tests 09/25/21 09/25/21 09/25/21 05:08 05:09 05:09 WBC 5.4 K/mm3 K/mm3 (4.5-10.0) RBC 4.64 M/mm3 M/mm3 (4.6-6.20) Hgb 14.7 g/dL g/dL (14.0-18.0) Hct 43.4 % % (42.0-52.0) MCV 93.5 fl fl (80-100) MCH 31.7 pg pg (26-34) MCHC 33.9 g/dl g/dl (32-36) RDW 12.5 % % (11.5-14.5) Plt Count 199 k/mm3 k/mm3 (150-375) MPV 9.0 fl fl (7.4-10.4) Sodium 137 mmol/L mmol/L (137-145) Potassium 4.1 mmol/L mmol/L (3.4-5.0) Chloride 101 mmol/L mmol/L (98-107) Carbon Dioxide 30 mmol/L mmol/L (22-30) Anion Gap 6 mmol/L L mmol/L (8-16) BUN 4 mg/dL L mg/dL (9-20) Creatinine 1.00 mg/dL mg/dL (0.7-1.3) Estim Creat Clear Calc 96 ml/min ml/min Estimated GFR > 60 (59 - ) Glucose 102 mg/dL mg/dL (65-110) Calcium 9.2 mg/dL mg/dL (8.4-10.2) Total Bilirubin 0.3 mg/dL mg/dL (0.2-1.3) Direct Bilirubin 0.0 mg/dL mg/dL (0-0.3) AST 54 U/L U/L (17-59) ALT 122 U/L H U/L (6-50) Alkaline Phosphatase 56 U/L U/L (38-126) Total Protein 7.0 g/dL g/dL (6.3-8.2) Albumin 4.1 g/dL g/dL (3.5-5.1) Patient hx anesthesia problems: none Family hx anesthesia problems: none Results Review: All pre-operative results and documents have been reviewed as part of the pre-operative evaluation. [facility] Past Medical History Medical History Alcohol use Calculus of kidney Chronic daily headache Dyspepsia Elevated liver enzymes Essential (primary) hypertension Hearing loss Memory loss Right lateral abdominal pain Sleep disorder, shift-work Trigeminal neuralgia of right side of face Family History Family History Grandparent Diabetes mellitus Mother Family history of malignant neoplasm of breast Hypertension Cholecystitis Sibling Hypertension Cholecystitis Father Family history of renal cell carcinoma Social History Social History Smoking packs per day: 1 Smoking cigarettes per day: 20.0 Years smoked: 7 Smoking pack-years: 7.00 Smoking status: Former smoker Tobacco type: cigarettes Second hand tobacco smoke exposure: No Smoking end date: 04/01/11 Alcohol intake: current Drinks per week: 30 Alcohol use details: Occasional Substance use: never Substance use type: does not use Last use: 09/22/21 Spiritual care concerns: No Anes - Eval Final PreProcedure Day of Procedure 09/25/21 14:42 Patient weight: overweight Heart: regular rate and rhythm Lungs: clear to auscultation Airway:
[2021-09-25] MEDS: BENZOCAINE (*SP) 60 ML SPRAY CAN (HURRICAINE) 1 SPRAY MUCOUS MEM (15:19)
--- NOTE | 2021-09-25 15:31 | SUR.OPER ---
EGD DONE AT 1528 COLONOSCOPY STARTED AT 1532
[2021-09-26] MEDS: LACTATED RINGERS 1,000 ML 90 ML IV CONT ×2 (00:06→12:38)
[2021-09-26 04:46] VITALS: BP 136/75; PULSE 58; RESP 20; TEMP 35.9; O2SAT 100
[2021-09-26 05:41] LABS: Hematocrit 42.4 % (42.0-52.0); Hemoglobin 14.7 g/dL (14.0-18.0); Mean Corpuscular HGB Conc 34.7 g/dl (32-36); Mean Corpuscular Hemoglobin 31.8 pg (26-34); Mean Corpuscular Volume 91.8 fl (80-100); Mean Platelet Volume 8.9 fl (7.4-10.4); Platelet Count Result 210 k/mm3 (150-375); Red Blood Count 4.62 M/mm3 (4.6-6.20); Red Cell Distribution Width 12.3 % (11.5-14.5); White Blood Count 6.2 K/mm3 (4.5-10.0)
[2021-09-26 05:52] LABS: Anion Gap 2 mmol/L (8-16); Blood Urea Nitrogen 10 mg/dL (9-20); Calcium 9.1 mg/dL (8.4-10.2); Carbon Dioxide 33 mmol/L (22-30); Chloride 102 mmol/L (98-107); Estimated CRCL calculation 88 ml/min; Estimated Glomerular Filt Rate > 60; Glucose 98 mg/dL (65-110); Potassium 4.3 mmol/L (3.4-5.0); Sodium 137 mmol/L (137-145)
[2021-09-26] MEDS: HYDROmorphone HCL INJ (*CRX) 1 MG/ML SYR IV PUSH ×2 (08:12→12:37)
[2021-09-26 08:14] VITALS: PULSE 58
[2021-09-26] MEDS: atenoloL 50 MG TABLET 100 MG PO (08:14)
[2021-09-26] MEDS: FAMOTIDINE 20 MG/2 ML VIAL IV PUSH (08:15)
[2021-09-26] MEDS: PANTOPRAZOLE 40 MG TABLET PO (08:19)
[2021-09-26 08:38] LABS: Alanine Aminotransferase 127 U/L (6-50); Albumin Level 3.9 g/dL (3.5-5.1); Alkaline Phosphatase 52 U/L (38-126); Aspartate Amino Transferase 61 U/L (17-59); Bilirubin,Total 0.4 mg/dL (0.2-1.3)
[2021-09-26 09:22] LABS: Appearance Urine Clear (Clear); Bilirubin Urine Negative (Negative); Blood Urine Negative (Negative); Glucose Urine UA Negative (Negative); Ketones Urine Negative (Negative); Leukocyte Esterase Ur Negative LEU/UL (Negative); Nitrate Urine Negative (Negative); Protein Urine Negative (Negative); Specific Grav Ur 1.015 (1.001-1.035); Urobilinogen Urine 0.2 mg/dL (<2.0)
[2021-09-26 09:24] LABS: Add Urine Microscopic? NO; Color Urine Light Yellow (Yellow)
--- NOTE | 2021-09-26 09:45 | PM.CNGS ---
Assessment and Plan Assessment and plan (1) Dysfunctional gallbladder: Code(s): K82.8 - Other specified diseases of gallbladder Status: Acute Assessment and Plan: HIDA scan showed gallbladder EF of 10% consistent with gallbladder dysfunction. All imaging reviewed and there is no evidence of cholecystitis or cholelithiasis. He does have a dilated common bile duct of an unclear etiology without any obstructing mass or stricture. His history and exam also do not correlate with gallbladder disease. I discussed with the patient that although his HIDA scan was abnormal, I do not believe his gallbladder is causing his current symptoms. There is no indication for urgent surgical intervention. Would agree with Urology consultation. Recommended that he follow a low fat diet and he can follow-up with Dr. Conner as an outpatient to further discuss surgery. Thank you for allowing us to see the patient in consultation. (2) Right flank pain: Code(s): R10.9 - Unspecified abdominal pain Status: Acute Assessment and Plan: His main complaint of pain is now in his right flank and low back. This is more likely related to the ureteral stone or a musculoskeletal cause. Agree with Urology consultation and further work-up per Hospitalist. (3) Ureteral calculus, right: Code(s): N20.1 - Calculus of ureter Status: Acute Assessment and Plan: Repeat CT scan showed right ureteral stone. Could be contributing to his right flank pain. Urology consulted. (4) Common bile duct dilatation: Code(s): K83.8 - Other specified diseases of biliary tract Status: Acute Assessment and Plan: Unclear etiology. MRCP, US, CT all show CBD dilatation but no evidence of a stricture or obstructing stone or mass. Dr. Conner could consider doing an intraoperative cholangiogram if patient decides to have surgery electively. (5) Elevated liver enzymes: Code(s): R74.8 - Abnormal levels of other serum enzymes Status: Acute Assessment and Plan: AST and ALT mildly elevated. Total bilirubin normal. Could be related to his alcohol use and hepatic steatosis. (6) Essential (primary) hypertension: Code(s): I10 - Essential (primary) hypertension Status: Acute (7) Gastritis: Code(s): K29.70 - Gastritis, unspecified, without bleeding Status: Acute Assessment and Plan: Found on EGD. Does not seem to be causing his symptoms. GI initiated PPI. Plan I have discussed the patient's case and plan of care with Dr. Conner. History of Present Illness Consult details Consult date: 09/26/21 Reason for consult: other (Gallbladder dysfunction/low gallbladder EF) Requesting physician: Rich Rhodes MD Narrative: This is a 41-year-old male with a history of hypertension, who presented to the emergency department 4 days ago with nausea, vomiting, and right-sided abdominal pain. He reports having right lower back and right flank pain off and on for months. 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 He reports when he would work consecutive days the pain would worsen, and then his back pain would improve on the days he would be off work. He reports over the past few weeks the pain started to radiate around his trunk laterally and to the right side of his abdomen. The pain was not aggravated by food. He also reports the pain was more in the right lower quadrant when there was radiation of the pain. He denies any nausea or vomiting. Then, 4 days ago he woke up in the morning and reportedly felt ?unwell?. He states his ?stomach was upset? with some mild epigastric abdominal pain. He reports having nausea and an episode of vomiting. He then developed chills, but no fever. He also reports poor appetite and developed diarrhea. He reports his prompted him to go to the ER for evaluation. Labs showed a whi
--- NOTE | 2021-09-26 11:31 | WPDANESPN ---
Anes - Prog Note Post-Op Date/Time: 09/26/21 11:31 Cardiovascular status: normal and other Respiratory status: normal Airway patency: baseline Mental status: baseline Post-Op hydration status: normal Vital Signs: Last Vital Signs Temp 35.9 C L 09/26/21 04:46 Pulse 58 L 09/26/21 08:14 Resp 20 09/26/21 04:46 BP 136/75 09/26/21 04:46 Pulse Ox 100 09/26/21 04:46 O2 Del Method Room Air 09/26/21 08:00 Pain Score (VAS): 04/10 I/O: Intake & Output 09/25/21 09/26/21 09/26/21 23:59 07:59 15:59 Intake Total 1890 700 220 Balance 1890 700 220 Laboratory Tests 09/26/21 05:23 09/26/21 05:23 09/26/21 09/26/21 09/26/21 05:21 05:23 05:23 WBC 6.2 RBC 4.62 Hgb 14.7 Hct 42.4 MCV 91.8 MCH 31.8 MCHC 34.7 RDW 12.3 Plt Count 210 MPV 8.9 Sodium 137 Potassium 4.3 Chloride 102 Carbon Dioxide 33 H Anion Gap 2 L BUN 10 D Creatinine 1.10 Estim Creat Clear Calc 88 Estimated GFR > 60 Glucose 98 Calcium 9.1 Total Bilirubin 0.4 Direct Bilirubin 0.0 AST 61 H ALT 127 H Alkaline Phosphatase 52 Total Protein 7.0 Albumin 3.9 Urine Color Urine Appearance Urine pH Ur Specific [place] Urine Protein Urine Glucose (UA) Urine Ketones Ur Blood (Man) Urine Nitrate Urine Bilirubin Urine Urobilinogen Leukocyte Esterase Rfl 09/26/21 09:10 WBC RBC Hgb Hct MCV MCH MCHC RDW Plt Count MPV Sodium Potassium Chloride Carbon Dioxide Anion Gap BUN Creatinine Estim Creat Clear Calc Estimated GFR Glucose Calcium Total Bilirubin Direct Bilirubin AST ALT Alkaline Phosphatase Total Protein Albumin Urine Color Light yellow Urine Appearance Clear Urine pH 7.0 Ur Specific [place] 1.015 Urine Protein Negative Urine Glucose (UA) Negative Urine Ketones Negative Ur Blood (Man) Negative Urine Nitrate Negative Urine Bilirubin Negative Urine Urobilinogen 0.2 Leukocyte Esterase Rfl Negative Patient Feedback: Patient satisfied with anesthetic care.
[2021-09-26 13:55] VITALS: BP 152/89; PULSE 68; RESP 18; TEMP 36.1; O2SAT 100
--- NOTE | 2021-09-26 15:56 | PM.DS ---
DS: Admitting Diagnosis Discharge Date 09/26/2021 Admitting Diagnosis epigastric pain DS: Summary Hospital Course Reason for hospitalization: Chief Complaint: Abdominal pain Narrative: This is a 41-year-old male with past medical history significant for hypertension, cluster headache, patient presents to the emergency room due to nausea, vomiting, abdominal pain which is in the epigastric area with radiation to the left quadrant, patient denies any fevers, rigors, chills, coffee-ground emesis, bright red blood per rectum, hematemesis, patient has been unable to keep anything down this has been happening for in the last day or so.? Preliminary workup was significant for CT of abdomen and pelvis with enlargement of common bile duct, and hepatic steatosis.? Patient rates the pain at 9/10 in intensity. Patient denies any weight loss, any changes in his stool character.? Patient has been admitted for further evaluation, management and treatment. Hospital Course: Patient reports significant abdominal pain that improves with pain medication - CT of abdomen pelvis mentions hepatic steatosis and mild common bile duct dilation - serum bilirubin is normal as well as alk phos but he does have 1+ bilirubin in his urine. ALT elevated. Lipase normal. - abdominal ultrasound with steatosis and hepatomegaly, common bile duct dilation without obstructing mass or stone - MRCP also with hepatic steatosis and mild enlargement of the common bile duct - HIDA scan showed gallbladder EF at 10%, lowest limit of normal. Could indicate chronic cholecystitis. Discussed case with general surgeon, Dr. Conner. Will plan for outpatient referral to discuss elective cholecystectomy. - Given complaints of sweats/chills, he was started on IV Zosyn on 09/23 for coverage of possible acute cholecystitis, cholangitis, other occult infection.? Continue at this time pending further workup.? Blood cultures pending.? Remains afebrile, no leukocytosis. Infection seems less likely at this time and if EGD/Colonoscopy without concerns for infection will dc abx today. Patient had been seen by Ms. Hayward and now was asked to see the patient I reviewed the chart with the patient patient is main complaint is pain in epigastrium all the workup so far including surgical consult a negative there was a concern the patient maybe originating from lumbar spine however x-ray of the lumbar spine did not show any pathology, patient remains clinically stable will discharge the patient today to follow-up with his primary care provider. Time Spent with Patient Time attestation: Total time spent providing and/or coordinating discharge services: Exam Narrative: Patient is comfortable, NAD HEENT: eyes are clear and none icteric LUNGS: normal respiratory effort ABD: not distended Lower extremities: no edema SKIN: nonjaundiced Neuro: grossly intact. DS: Data Data Completed and Pending Pending studies at discharge: Pending at discharge 09/25/21 15:34 Surgical [PTH] Routine Labs on day of discharge: Labs from last 24 hours 09/26/21 09/26/21 09/26/21 09:10 05:23 05:23 WBC 6.2 RBC 4.62 Hgb 14.7 Hct 42.4 MCV 91.8 MCH 31.8 MCHC 34.7 RDW 12.3 Plt Count 210 MPV 8.9 Sodium 137 Potassium 4.3 Chloride 102 Carbon Dioxide 33 H Anion Gap 2 L BUN 10 D Creatinine 1.10 Estim Creat Clear Calc 88 Estimated GFR > 60 Glucose 98 Calcium 9.1 Total Bilirubin Direct Bilirubin AST ALT Alkaline Phosphatase Total Protein Albumin Urine Color Light yellow Urine Appearance Clear Urine pH 7.0 Ur Specific [place] 1.015 Urine Protein Negative Urine Glucose (UA) Negative Urine Ketones Negative Ur Blood (Man) Negative Urine Nitrate Negative Urine Bilirubin Negative Urine Urobilinogen 0.2 Leukocyte Esterase Rfl Negative 09/26/21 05:21 WBC RBC Hgb Hct MCV MCH
--- NOTE | 2021-09-26 21:13 | WPDURCON ---
Assessment and Plan Assessment and plan (1) Ureteral calculus, right: Code(s): N20.1 - Calculus of ureter Status: Acute Assessment and Plan: 1mm stone which is expected to pass spontaneously. I recommend him to follow up with our office in 2 weeks for JAZZY to ensure no hydronephrosis is present. No intervention needed. (2) Right flank pain: Code(s): R10.9 - Unspecified abdominal pain Status: Acute Assessment and Plan: His stones were initially non obstructive, when his right lower quadrant pain caused him to come into the ER, therefore they were not the initial cause of his pain. A 1mm ureteral stone may cause intermittent pain but tolerable and it is not obstructive and not requiring intervention. (3) Right renal stone: Code(s): N20.0 - Calculus of kidney Status: Acute Assessment and Plan: Punctate in size, will monitor yearly in the office. No further evaluation needed. Urology Consult Note HPI Date Seen: 09/26/21 Time Seen: 12:30 Requesting Physician: mEy Hayward PA-C Primary Care Provider: Holland Herrera MD Consult Narrative Reason for consult: right ureteral stone/right renal stone Narrative: Kiko Monroy is a 41 year old male who initially presented for right lower quadrant pain accompanied by vomiting on 09/22/21. He was afebrile, creatinine was normal and WBC is also within normal range. His UA is normal as well. His initial CT scan showed right renal stones that are punctate in size on 09/22/21. As his pain continued a CT scan was repeated and it was noted that he was then passing a 1mm right renal stone as of 09/25/21. We were consulted d/t his right ureteral stone per the patient request as a possible contributing factor in his continued right flank pain. He states he has no prior history of passing kidney stones and has no other urologic history other than having an elective vase[place] [address] Butler. Review of Systems Cardiovascular: Cardiovascular: Denies chest pain Gastrointestinal: Gastrointestinal: Reports abdominal pain, Denies nausea and Denies vomiting Genitourinary: Genitourinary: Denies hematuria, Denies dysuria and Denies flank pain PMFSH Past Medical History Medical History Alcohol use Calculus of kidney Chronic daily headache Dyspepsia Elevated liver enzymes Essential (primary) hypertension Hearing loss Memory loss Following meningitis in 2019 Sleep disorder, shift-work Trigeminal neuralgia of right side of face Surgical History Surgical History History of knee surgery History of vasectomy History of wisdom tooth extraction Family History Family History Grandparent Diabetes mellitus Mother Family history of malignant neoplasm of breast Hypertension Cholecystitis Sibling Hypertension Cholecystitis Father Family history of renal cell carcinoma Social History Social History Smoking packs per day: 1 Smoking cigarettes per day: 20.0 Years smoked: 7 Smoking pack-years: 7.00 Smoking status: Former smoker Tobacco type: cigarettes Second hand tobacco smoke exposure: No Smoking end date: 04/01/11 Alcohol intake: current Drinks per week: 30 Alcohol use details: Occasional Substance use: never Substance use type: does not use Last use: 09/22/21 Spiritual care concerns: No Meds Home Medications and Allergies Home Medications Medication Instructions Recorded Confirmed Type memantine 10 mg tablet 10 mg PO BID 03/09/20 09/23/21 History protriptyline 5 mg tablet 5 mg PO DAILY 03/09/20 09/23/21 History hydrochlorothiazide 12.5 mg tablet 12.5 mg PO DAILY #90 tabs 02/15/21 09/23/21 Rx atenolol 100 mg tablet 100 mg PO DAILY 09/23/21
== END 2021-09-26 16:37 | disposition home or self-care (01) | DRG 392 ==
LOC: ANHED 22:53 → ANH2MED 23:25
PROVIDERS: Internal Medicine Gastroenterology; Physician Assistant; Admitting Provider Internal Medicine; Emergency Provider Emergency Medicine; PCP Family Medicine; Visit Provider Family Medicine
PROC: 0DJ08ZZ Inspection of Upper Intestinal Tract, Via Natural or Artificial Opening Endoscopic (ICD-10-PCS; CPT 43235; principal; 2021-09-25 14:45)
DX: K29.70 Gastritis, unspecified, without bleeding (principal); N20.1 Calculus of ureter; R74.01 Elevation of levels of liver transaminase levels; I10 Essential (primary) hypertension; G47.26 Circadian rhythm sleep disorder, shift work type; G50.0 Trigeminal neuralgia; Z87.891 Personal history of nicotine dependence; Z82.49 Family history of ischemic heart disease and other diseases of the circulatory system; G47.9 Sleep disorder, unspecified; R41.3 Other amnesia; K83.8 Other specified diseases of biliary tract; Z72.89 Other problems related to lifestyle; K82.8 Other specified diseases of gallbladder; K63.9 Disease of intestine, unspecified; N20.0 Calculus of kidney; K63.5 Polyp of colon; Z79.899 Other long term (current) drug therapy
CPT/HCPCS: 36415; 71045; 71260; 72100; 72220; 74176; 74177; 74183; 76376; 76705; 78227; 80048; 80053; 80074; 80076; 81001; 81003; 83690; 84484; 85025; 85027; 86703; 87040; 87081; 88305; 93005; 96361; 96365; 96366; 96367; 96374; 96375; 96376; 99285; A9270; A9537; A9577; G0378; G0432; J0131; J1170; J2001; J2270; J2405; J2543; J2704; J2805; J7030; J7120; Q9967

== ENCOUNTER → 2022-04-24 15:25 | Outpatient (CLI) | payer OTHER, SELFPAY ==
--- NOTE | ~2022-04-24 | CT_ITS ---
EXAMINATION: CT abdomen pelvis w con DATE: 04/24/2022 16:03 INDICATION: Right lower quadrant abdominal pain. TECHNIQUE: Computed tomography (CT) of the abdomen and pelvis was performed with 100 mL Omnipaque 350 intravenous contrast. Automated exposure control and iterative reconstruction technique were employe d. The dose-length product was 1081.89 mGy-cm. COMPARISON: CT abdomen and pelvis 09/25/2021 FINDINGS: The visualized portions of the lung bases demonstrate mild atelectasis. A calcified left louis ng nodule is consistent with old granulomatous disease. No pleural effusion. The heart size is normal . No pericardial effusion. There is diffuse hepatic steatosis. The gallbladder, spleen, pancreas, adr enal glands, and left kidney are normal. There is a 2 mm stone in right kidney. There are no dilated loops of bowel. The appendix is normal. There are no pathologically enlarged lymph nodes. There is no free intraperitoneal fluid. There is mild lumbar spondylosis. IMPRESSION: 1. Diffuse hepatic steatosis. Reviewed, dictated and finalized at location A. [employer]
[2022-04-24 15:53] LABS: Estimated Glomerular Filt Rate > 60
== END ==
PROVIDERS: PCP Family Medicine; Visit Provider Nurse Practitioner
DX: R10.31 Right lower quadrant pain (principal); K76.0 Fatty (change of) liver, not elsewhere classified
CPT/HCPCS: 74177; Q9967

== ENCOUNTER 2022-04-24 16:03 | Outpatient (CLI) | payer OTHER, SELFPAY ==
[2022-04-24 20:19] LABS: Alanine Aminotransferase 123 U/L (6-50); Albumin Level 4.3 g/dL (3.5-5.1); Alkaline Phosphatase 65 U/L (38-126); Amylase 80 U/L (30-110); Anion Gap 7 mmol/L (8-16); Aspartate Amino Transferase 61 U/L (17-59); Bilirubin,Total 0.5 mg/dL (0.2-1.3); Blood Urea Nitrogen 15 mg/dL (9-20); Calcium 9.1 mg/dL (8.4-10.2); Carbon Dioxide 32 mmol/L (22-30); Chloride 97 mmol/L (98-107); Estimated Glomerular Filt Rate > 60; Glucose 96 mg/dL (65-110); Lipase 129 U/L (23-300); Potassium 4.1 mmol/L (3.4-5.0); Sodium 136 mmol/L (137-145)
[2022-04-24 21:15] LABS: Basophils Absolute Auto 0.1 K/mm3 (0.0-0.1); Basophils Percent Auto 0.6 % (0.2-1.2); Eosinophils Absolute Auto 0.2 K/mm3 (0-0.3); Eosinophils Percent Auto 2.8 % (0-4.4); Hematocrit 44.3 % (42.0-52.0); Hemoglobin 15.4 g/dL (14.0-18.0); Immature Granulocyte Absolute 0.02 K/mm3 (0.00-0.031); Immature Granulocyte Percent A 0.3 % (0-0.5); Lymphocytes Absolute Auto 2.29 K/mm3 (0.9-3.2); Lymphocytes Percent Auto 29.5 % (18.3-44.2); Mean Corpuscular HGB Conc 34.8 g/dl (32-36); Mean Corpuscular Hemoglobin 31.3 pg (26-34); Monocytes Absolute Auto 0.9 K/mm3 (0.1-0.6); Monocytes Percent Auto 11.8 % (2.6-8.5); Neutrophils Absolute Auto 4.3 K/mm3 (1.3-6.7); Platelet Count Result 268 k/mm3 (150-375); Red Blood Count 4.92 M/mm3 (4.6-6.20); White Blood Count 7.8 K/mm3 (4.5-10.0)
== END 2022-04-24 16:04 | disposition home or self-care (01) ==
LOC: ANHGOSHLAB 16:05
PROVIDERS: PCP Family Medicine; Visit Provider Nurse Practitioner
DX: R10.9 Unspecified abdominal pain (principal)
CPT/HCPCS: 36415; 80053; 82150; 83690; 85025

== ENCOUNTER 2023-04-17 15:51 | Outpatient (CLI) | payer OTHER, SELFPAY ==
[2023-04-17 18:43] LABS: Basophils Absolute Auto 0.1 K/mm3 (0.0-0.1); Basophils Percent Auto 0.7 % (0.2-1.2); Eosinophils Absolute Auto 0.2 K/mm3 (0-0.3); Eosinophils Percent Auto 2.3 % (0-4.4); Hematocrit 48.5 % (42.0-52.0); Hemoglobin 15.7 g/dL (14.0-18.0); Immature Granulocyte Absolute 0.02 K/mm3 (0.00-0.031); Immature Granulocyte Percent A 0.2 % (0-0.5); Lymphocytes Absolute Auto 1.95 K/mm3 (0.9-3.2); Mean Corpuscular HGB Conc 32.4 g/dl (32-36); Mean Corpuscular Hemoglobin 30.8 pg (26-34); Mean Corpuscular Volume 95.1 fl (80-100); Monocytes Absolute Auto 0.9 K/mm3 (0.1-0.6); Monocytes Percent Auto 10.8 % (2.6-8.5); Platelet Count Result 286 k/mm3 (150-375); Red Cell Distribution Width 12.3 % (11.5-14.5); White Blood Count 8.1 K/mm3 (4.5-10.0)
[2023-04-17 19:11] LABS: Alanine Aminotransferase 146 U/L (6-50); Albumin Level 4.5 g/dL (3.5-5.1); Alkaline Phosphatase 70 U/L (38-126); Aspartate Amino Transferase 76 U/L (17-59); Bilirubin,Total 0.7 mg/dL (0.2-1.3)
== END 2023-04-17 15:52 | disposition home or self-care (01) ==
LOC: ANHGOSHLAB 15:52
PROVIDERS: PCP Family Medicine; Visit Provider Family Medicine
DX: R74.8 Abnormal levels of other serum enzymes (principal); K75.81 Nonalcoholic steatohepatitis (NASH); E83.119 Hemochromatosis, unspecified
CPT/HCPCS: 36415; 80076; 82728; 85025

== ENCOUNTER 2023-08-05 15:09 | Emergency (ER) | payer OTHER, SELFPAY ==
[2023-08-05 15:19] VITALS: BP 139/90; PULSE 92; RESP 18; TEMP 36.7; O2SAT 98
[2023-08-05 16:55] VITALS: BP 131/84; PULSE 71; RESP 16; TEMP 37.1; O2SAT 100
--- NOTE | 2023-08-05 17:09 | ED.SKABFB ---
HPI - Skin/Abscess/Foreign Bdy General Chief complaint: Skin/Abscess/Foreign Body Stated complaint: shingles Time Seen by Provider: 08/05/23 17:10 Focused HPI: Kiko is a 43-year-old male patient presenting to the emergency room today with complaints of a possible shingles rash to his legs, back of his head, face, and right buttocks. He reports that the rash initially started on the right buttocks. Has taken 2 rounds of acyclovir without relief. States that Dr. Herrera sent him to the ER today for IV acyclovir. Has had some body aches without known fever General: Well-developed, well nourished, in no apparent distress Head: Normocephalic, atraumatic. Cardio: Regular rate and rhythm, s1 and s2 normal, no murmur appreciated. Resp: Clear to auscultation bilaterally, no rhonchi, rales, wheezing or rubs. Integumentary: [place], warm, and dry, intact without lesion, Red, painful, itchy, raised sores to the right buttocks, posterior scalp, outer right ear, and left leg. Rash looks as though it may be a staph infection Patient screened in triage and initial orders placed. Additional care and disposition to be based upon diagnostic testing and treatment. Source: patient Mode of arrival: ambulatory Limitations: no limitations Related Data Allergies Allergy/AdvReac Type Severity Reaction Status Date / Time vilazodone [From Viibryd] AdvReac Severe Agitated Verified 08/01/23 11:12 Review of Systems Review of Systems: Pertinent positives per HPI. Patient denies any fever, chills, headache, visual changes, dizziness, cough, runny nose, sore throat, shortness of breath, chest pain, palpitations, nausea, vomiting, diarrhea, constipation, abdominal pain, or any urinary issues. [facility] Past Medical History Medical History Alcohol use Calculus of kidney Chronic daily headache Dyspepsia Elevated liver enzymes Essential (primary) hypertension Hearing loss Memory loss Following meningitis in 2019 Right renal stone Sleep disorder, shift-work Transaminitis Trigeminal neuralgia of right side of face Ureteral calculus, right Surgical History Surgical History History of knee surgery History of vasectomy History of wisdom tooth extraction Family History Family History Grandparent Diabetes mellitus Mother Family history of malignant neoplasm of breast Hypertension Cholecystitis Sibling Hypertension Cholecystitis Father Family history of renal cell carcinoma Social History Social History Social History: Caffeine-coffee Smoking packs per day: 1 Smoking cigarettes per day: 20.0 Years smoked: 7 Smoking pack-years: 7.00 Smoking status: Former smoker Tobacco type: cigarettes Second hand tobacco smoke exposure: No Smoking end date: 04/01/11 Alcohol intake: current Drinks per week: 30 Alcohol use details: Occasional Substance use: never Substance use type: does not use Last use: 09/22/21 Lack of Transportation: No Lack of Food: Never True Current Housing: I Have Housing Concerned About Future Housing: No Difficulty Paying Gas/Electric Bills: No Difficulty Paying for Meds: No Currently Unemployed: No Education: High School Diploma/GED Difficulty w/ Childcare or Family Care: No Spiritual care concerns: No Comments At the time of my signature, I reviewed and agree with the nursing past medical, surgical, social, and family history. There is no relevant family history pertinent to the patient complaint. Exam Narrative: General: Well-developed, well nourished, in no apparent distress Head: Normocephalic, atraumatic. Cardio: Regular rate and rhythm, s1 and s2 normal, no murmur appreciated. Resp: Clear to auscultation bilaterally, no
[2023-08-05 17:32] LABS: Basophils Absolute Auto 0.1 K/mm3 (0.0-0.1); Basophils Percent Auto 0.6 % (0.2-1.2); Eosinophils Absolute Auto 0.2 K/mm3 (0-0.3); Eosinophils Percent Auto 2.3 % (0-4.4); Hematocrit 47.6 % (42.0-52.0); Hemoglobin 16.2 g/dL (14.0-18.0); Immature Granulocyte Absolute 0.05 K/mm3 (0.00-0.031); Immature Granulocyte Percent A 0.5 % (0-0.5); Lymphocytes Absolute Auto 2.24 K/mm3 (0.9-3.2); Lymphocytes Percent Auto 21.5 % (18.3-44.2); Mean Corpuscular Hemoglobin 31.8 pg (26-34); Mean Corpuscular Volume 93.5 fl (80-100); Mean Platelet Volume 9.1 fl (7.4-10.4); Monocytes Percent Auto 9.5 % (2.6-8.5); Neutrophils Absolute Auto 6.9 K/mm3 (1.3-6.7); Neutrophils Percent Auto 65.6 % (45.5-73.1); Platelet Count Result 250 k/mm3 (150-375); Red Blood Count 5.09 M/mm3 (4.6-6.20); Red Cell Distribution Width 13.1 % (11.5-14.5); White Blood Count 10.4 K/mm3 (4.5-10.0)
[2023-08-05 17:41] LABS: Lactic Acid Reflex 1.2 mmol/L (0.7-2.0)
[2023-08-05 17:43] LABS: Alanine Aminotransferase 181 U/L (6-50); Alkaline Phosphatase 66 U/L (38-126); Anion Gap 8 mmol/L (4-12); Aspartate Amino Transferase 75 U/L (17-59); Bilirubin,Total 0.6 mg/dL (0.2-1.3); Blood Urea Nitrogen 20 mg/dL (9-20); CRP 0.7 mg/dL (<1.0); Carbon Dioxide 28 mmol/L (22-30); Chloride 100 mmol/L (98-107); Estimated CRCL calculation 116 ml/min; Estimated Glomerular Filt Rate > 60; Glucose 105 mg/dL (65-110); Potassium 4.6 mmol/L (3.4-5.0); Sodium 136 mmol/L (137-145)
[2023-08-05 18:15] LABS: Erythrocyte Sedimentation Rate 5 mm/hr (0-20)
[2023-08-05] MEDS: DOXYCYCLINE HYCLATE 100 MG TABLET 200 MG PO (18:55)
[2023-08-05 18:57] VITALS: BP 128/83; PULSE 69; RESP 19; TEMP 37; O2SAT 100
== END 2023-08-05 18:58 | disposition home or self-care (01) ==
LOC: ANHED 18:41
PROVIDERS: Emergency Provider Nurse Practitioner Family; PCP Family Medicine
DX: L08.9 Local infection of the skin and subcutaneous tissue, unspecified (principal); B96.89 Other specified bacterial agents as the cause of diseases classified elsewhere; I10 Essential (primary) hypertension; Z87.442 Personal history of urinary calculi
CPT/HCPCS: 36415; 80053; 83605; 85025; 85652; 86140; 99283; A9270

== ENCOUNTER 2023-08-16 08:17 | Outpatient (CLI) | payer OTHER, SELFPAY ==
--- NOTE | 2023-09-02 11:47 | WPDSLEEPSTUD ---
Sleep Study Date of Study: 08/16/23 Ordering Provider: Brandy Duque DO Interpreting Physician: Brandy Duque DO Sleep Study Type: Split Polysomnogram Height: 1.85 m Weight: 99.79 kg Body Mass Index: 29.0 Neck Circumference (inches): 17 Vidal: 11 Reason for Sleep Study Acting out dreams, unrefreshing sleep Sleep History The patient is a 43-year-old male that had a sleep study ordered for evaluation of dream enactment behavior and on refreshing sleep. The patient denies awakening from sleep short of breath. He occasionally awakens at night with heartburn, belching or cough. He occasionally snores and a is occasionally loud enough that others complain. He rarely has trouble sleeping when he has a cold. He denies waking up gasping for air throughout the night. He rarely has breathing problems at night observed by himself or others. He occasionally sweats excessively at night. He occasionally has heart palpitations or irregular heartbeats during the night. He occasionally falls asleep during the day but never while driving. He denies cataplexy. He occasionally has trouble at school or work due to sleepiness. He occasionally feels unable to move while waking up or falling asleep. He occasionally experiences vivid dreamlike scenes upon awakening or falling asleep. He denies feeling afraid of going to sleep. He denies having nightmares. He occasionally remembers his dreams. He frequently has thoughts racing through his mind. He rarely feels sad or depressed. He frequently has anxiety. He frequently has muscular tension. He frequently notices parts of his body jerk and he frequently kicks during the night. He occasionally has crawling and aching feelings in his legs and occasionally has leg pain during the night. He denies grinding his teeth during sleep but occasionally awakens with morning jaw pain. He is occasionally bothered by pain during the day but rarely awakened by pain during the night. He frequently wakes up feeling stiff in the morning. He frequently wakes up with sore or achy muscles. He frequently wakes up with pain in the neck, spine and other joints. He goes to bed between 10:00 p.m. to midnight on both weekdays and weekends. It takes him 1 hour to fall asleep. He wakes up at least twice per night to urinate and the amount of time it takes for him to fall back asleep is variable. He currently does shift work. He wakes up between 4-7 a.m. on weekdays and between 4-8 a.m. on the weekends. He typically gets 4-7 hours of sleep per night. He will stay in bed for up to 20 minutes after waking up in the morning. He currently lives with his and 2 children. He denies consuming any caffeinated beverages within 2 hours of bedtime. He denies engaging in physical exercise before bedtime. He will watch television before falling asleep. He will take naps in the afternoon or the evening and they are refreshing. He is a former smoker. He currently consumes 1 cup of coffee at most per day. He consumes 12-14 beers per week. [facility] Past Medical History Medical History Alcohol use Calculus of kidney Chronic daily headache Dyspepsia Elevated liver enzymes Essential (primary) hypertension Hearing loss Memory loss Following meningitis in 2019 Right renal stone Sleep disorder, shift-work Transaminitis Trigeminal neuralgia of right side of face Ureteral calculus, right Surgical History Surgical History History of knee surgery History of vasectomy History of wisdom tooth extraction Family History Family History Grandparent Diabetes mellitus Mother Family history of malignant neoplasm of breast Hypertension Cholecystitis Sibling Hypertension Cholecystitis Father Family history of renal cell carcinoma [facility]
[2023-09-02 12:04] VITALS: BMI 29.0
== END 2023-08-17 06:30 | disposition home or self-care (01) ==
LOC: ANHCSM 08:20
PROVIDERS: PCP Family Medicine; Visit Provider Family Medicine
DX: G47.33 Obstructive sleep apnea (adult) (pediatric) (principal); G47.52 REM sleep behavior disorder; F39 Unspecified mood [affective] disorder
CPT/HCPCS: 95811

== ENCOUNTER 2023-09-09 10:31 | Outpatient (CLI) | payer OTHER, SELFPAY ==
[2023-09-09 14:59] LABS: Basophils Absolute Auto 0.1 K/mm3 (0.0-0.1); Basophils Percent Auto 0.8 % (0.2-1.2); Eosinophils Absolute Auto 0.2 K/mm3 (0-0.3); Eosinophils Percent Auto 2.4 % (0-4.4); Hematocrit 47.9 % (42.0-52.0); Hemoglobin 15.7 g/dL (14.0-18.0); Immature Granulocyte Absolute 0.02 K/mm3 (0.00-0.031); Immature Granulocyte Percent A 0.3 % (0-0.5); Lymphocytes Absolute Auto 1.68 K/mm3 (0.9-3.2); Lymphocytes Percent Auto 25.3 % (18.3-44.2); Mean Corpuscular HGB Conc 32.8 g/dl (32-36); Mean Corpuscular Hemoglobin 31.8 pg (26-34); Mean Platelet Volume 9.9 fl (7.4-10.4); Monocytes Absolute Auto 0.7 K/mm3 (0.1-0.6); Monocytes Percent Auto 9.9 % (2.6-8.5); Neutrophils Absolute Auto 4.1 K/mm3 (1.3-6.7); Neutrophils Percent Auto 61.3 % (45.5-73.1); Platelet Count Result 263 k/mm3 (150-375); Red Blood Count 4.94 M/mm3 (4.6-6.20); White Blood Count 6.7 K/mm3 (4.5-10.0)
[2023-09-09 17:18] LABS: Alanine Aminotransferase 283 U/L (6-50); Albumin Level 4.9 g/dL (3.5-5.1); Alkaline Phosphatase 65 U/L (38-126); Anion Gap 7 mmol/L (4-12); Aspartate Amino Transferase 153 U/L (17-59); Bilirubin,Total 0.8 mg/dL (0.2-1.3); Blood Urea Nitrogen 14 mg/dL (9-20); Calcium 10.1 mg/dL (8.4-10.2); Carbon Dioxide 29 mmol/L (22-30); Chloride 103 mmol/L (98-107); Estimated Glomerular Filt Rate > 60; Glucose 103 mg/dL (65-110); Potassium 5.1 mmol/L (3.4-5.0); Sodium 139 mmol/L (137-145)
== END 2023-09-09 10:32 | disposition home or self-care (01) ==
LOC: ANHGOSHLAB 10:34
PROVIDERS: PCP Family Medicine; Visit Provider Family Medicine
DX: E83.119 Hemochromatosis, unspecified (principal); K75.81 Nonalcoholic steatohepatitis (NASH)
CPT/HCPCS: 36415; 80053; 82728; 85025

== ENCOUNTER 2024-01-08 11:37 | Outpatient (CLI) | payer OTHER, SELFPAY ==
[2024-01-08 16:51] LABS: Basophils Absolute Auto 0.1 K/mm3 (0.0-0.1); Eosinophils Absolute Auto 0.3 K/mm3 (0-0.3); Eosinophils Percent Auto 3.5 % (0-4.4); Hematocrit 47.2 % (42.0-52.0); Hemoglobin 15.5 g/dL (14.0-18.0); Immature Granulocyte Absolute 0.02 K/mm3 (0.00-0.031); Immature Granulocyte Percent A 0.3 % (0-0.5); Lymphocytes Absolute Auto 2.02 K/mm3 (0.9-3.2); Lymphocytes Percent Auto 28.4 % (18.3-44.2); Mean Corpuscular HGB Conc 32.8 g/dl (32-36); Mean Corpuscular Hemoglobin 31.2 pg (26-34); Mean Platelet Volume 9.7 fl (7.4-10.4); Monocytes Absolute Auto 0.7 K/mm3 (0.1-0.6); Neutrophils Percent Auto 56.8 % (45.5-73.1); Platelet Count Result 283 k/mm3 (150-375); Red Blood Count 4.97 M/mm3 (4.6-6.20); Red Cell Distribution Width 12.7 % (11.5-14.5); White Blood Count 7.1 K/mm3 (4.5-10.0)
[2024-01-08 17:03] LABS: Alanine Aminotransferase 94 U/L (6-50); Albumin Level 4.8 g/dL (3.5-5.1); Alkaline Phosphatase 66 U/L (38-126); Anion Gap 9 mmol/L (4-12); Aspartate Amino Transferase 66 U/L (17-59); Bilirubin,Total 0.5 mg/dL (0.2-1.3); Blood Urea Nitrogen 10 mg/dL (9-20); Calcium 9.7 mg/dL (8.4-10.2); Carbon Dioxide 28 mmol/L (22-30); Chloride 100 mmol/L (98-107); Estimated Glomerular Filt Rate > 60; Glucose 109 mg/dL (65-110); Potassium 4.6 mmol/L (3.4-5.0); Sodium 137 mmol/L (137-145)
== END 2024-01-08 11:38 | disposition home or self-care (01) ==
LOC: ANHGOSHLAB 11:38
PROVIDERS: PCP Family Medicine; Visit Provider Family Medicine
DX: I10 Essential (primary) hypertension (principal); E83.119 Hemochromatosis, unspecified; R74.8 Abnormal levels of other serum enzymes
CPT/HCPCS: 36415; 80048; 80076; 82728; 85025

== ENCOUNTER 2024-12-29 00:20 | Day surgery (SDC) | payer OTHER, SELFPAY ==
[2024-12-16 09:17] VITALS: BMI 27.0
--- OUTSIDE RECORDS SUMMARY | 2024-12-29 00:22 | XMS_ITS | Clinical Summary ---
Author Organization [facility] Address [address] [place] [address] Care Team Providers Care Instrument [employer] Name Role Phone Holland Herrera MD Primary Care Provider [phone] Allergies Active Allergy Reactions Criticality Noted Date Comments Nsaids (Non-Steroidal Anti-Inflammatory Drug) Other (See comments) Low 11/11/2020 Possible drug-induced lymphocytic/eosinophil ic meningitis Medications atenolol (TENORMIN) 100 mg tablet Take 1 tablet (100 mg total) by mouth daily 11/17/2018 Active hydroCHLOROthiaz maikel (MICROZIDE) 12.5 mg capsule Take 12.5 mg by mouth daily 11/19/2018 Active traMADol (ULTRAM) 50 mg tablet Take 1 tablet (50 mg total) by mouth every 6 (six) hours as needed 1 12/09/2018 Active cyclobenzaprine (FLEXERIL) 10 mg tabletIndication s:Neck pain Take 1 tablet (10 mg total) by mouth 3 (three) times a day as needed for muscle spasms As needed 30 tablet 11 02/11/2020 Active protriptyline (VIVACTIL) 10 mg tabletIndication s:Chronic tension-type headache, intractable Take 1 tablet (10 mg total) by mouth daily 90 tablet 3 11/11/2020 Active memantine (NAMENDA) 10 mg tabletIndication s:headache Take 1 tablet (10 mg total) by mouth daily 90 tablet 3 11/11/[address] (PROTONIX) 40 mg EC tablet Take 1 tablet (40 mg total) by mouth daily Active morphine (MSIR) 15 mg tablet Take 1 tablet (15 mg total) by mouth every 4 (four) hours as needed for pain 12 tablet 10/31/2022 Active Active Problems Problem Noted Date Diagnosed Date Metabolic dysfunction-associated steatohepatitis (MASH) 10/12/2022 Assessment & Plan (10/18/2022 6:16 PM CDT): Based on hepatic steatosis on imaging studies and elevated transaminases. I suspect he has a combination of alcoholic steatohepatitis and non-alcoholic steatohepatitis. That being said, it is much more common to see an AST greater than the ALT in alcoholic hepatitis. With the ALT being higher, I think it important to rule out other causes of chronic liver disease. Thus, I am sending off a number of studies. If all of the studies are normal/negative, my only recommendation would be minimizing, if not eliminating, alcohol intake as well as regular exercise with the hope of losing approximately 10 lb. Further recommendations when the results of the studies are available. We discussed the cause of increased hepatic fat, i.e., inadequate metabolism of fat delivered to the liver. When associated with elevated transaminases, this is non-alcoholic steatohepatitis. This inflammation can lead to scar tissue or cirrhosis of the liver in approximately 30% of cases. Patients with cirrhosis are at risk for developing complications of portal hypertension, liver failure, , liver cancer, and/or the need for a liver transplant. Fat in the absence of elevated transaminases is non-alcoholic fatty liver disease. Routinely, this is not associated with inflammation or progressive hepatic fibrosis. The most effective treatment of fatty liver is weight loss, ideally achieved through a combination of caloric restriction and exercise. Aerobic exercise for 4 hours a week can accelerate fat metabolism and lead to improvement of liver tests. Weight loss of 5-10% of the current body weight usually leads to improvement in liver tests, liver inflammation, and a decrease in hepatic fibrosis. 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 Medication overuse headache 01/07/2019 Anxiety disorder due to known physiological cond ition 01/07/2019 Dysphoric mood 01/07/2019 Hypertension 11/22/2018 Chronic tension-type headache, intractable 11/22 Assessment & Plan (11/11/2020 11:17 AM CDT): Well controlled on current regimen Continue protriptyline Continue memantine Consider LTG or GBP in the future if additional headache control is needed Consider fioricet or baclofen PRN Meningitis 11/22/2018 Transaminitis 11/22/2018 Resolved Problems Problem Noted Date Diagnosed Date Resolved Date Chronic daily headache 11/11/202011/11 Encounters Date Type Department Care Team Description 10/01/2024 Telephone [facility] Medicine Gastroenterology [address] [place] [address] [place] [address] Dale Leija MD Test Results from Last 3 Months Immunizations Immunization Administration Dates Next Due Influenza, Quadrivalent, Spl it, Preservative Free, Intramuscular 01/13/2019 Surgical History Surgery Date Site/Laterality Comments VASECTOMY LUMBAR PUNCTURE Aseptic meningitis US GUIDED BIOPSY LIVER 10/30/2022 N/A Medical History Medical History Date Comments Chronic headaches Hypertension Nephrolithiasis Family History Medical History Relation Name Comments Kidney cancer Father Pulmonary embolism Father Bilateral breast cancer Mother Breast cancer Mother Relation Name Status Comments Father Mother Social History Tobacco Use Types Packs/Day Years Used Date Smoking Tobacco: Every Day E-cigarettes Smokeless Tobacco: Current Chew Tobacco Cessation:Ready to Q uit: Not Asked; Counseling Given: Not Answered Comments:uses a vape- couple times a day/ cessation info given Alcohol Use Standard Drinks/Week Comments Yes 0 (1 standard drink = 0.6 oz pur e alcohol) 4-5 a drinks month AUDIT-C Answer Date Recorded Q1: How often do you have a drink containing alcohol? 4 or more times a week 10/18/2022 Q2: How many drinks containi ng alcohol do you have on a typical day when you are drinking? 3 or 4 Q3: How often do you have si x or more drinks on one occasion? Less than monthly 10/18/2022 Personal Safety Answer Date Recorded Have you ever been in or are you currently in a harmful physical or emotional relationship or is someone making you feel afraid or unsafe? 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 Not on file Not on quinton e Not on file Obstetrics History Last Filed Vital Signs Vital Sign Reading Time Taken Comments Blood Pressure 143/90 10/31/2022 3:30 AM CDT Pulse 71 10/31/2022 3:30 AM CDT Temperature 36.9 C (98.4 F) 10/30/2022 11:18 PM CDT Respiratory Rate 18 10/30/2022 8:20 PM CDT Oxygen Saturation 95% 10/31/2022 3:30 AM CDT Inhaled Oxygen Concentration - - Weight 95.3 kg (210 lb) 10/30/2022 8:18 PM CDT Height 185.4 cm (6' 1) 10/30/2022 8:18 PM CDT Body Mass Index 27.71 10/30/2022 8:18 PM CDT Plan of Treatment Health Maintenance Due Date Last Done Comments Colon Cancer Screening-Colonoscopy 1979 Depression Screening 1979 Varicella Vaccines (1 of 2 - 13+ 2-dose series) 07/16/1992 Hepatitis B Screening 07/16/1997 Regular Well Visit/Exam 18-64 07/16/1997 Pneumococcal vaccine <65 (1 of 2 - PCV) 07/16/1998 HPV Vaccines (1 - 3-dose SCDM series) 07/16/2006 Influenza Vaccine (#1) 2024 01/13/2019 DTaP/Tdap/Td Vaccine (2 - Td or Tdap) 09/12/2026 Hepatitis C Screening Completed 09/16/2023, 019 Procedures Procedure Name Priority Date/Time Associated Diagnosis Comments HEPATIC FUNCTION PANEL Routine 09/30/2024 9:01 AM CDT Transaminitis Steatohepatitis, non-alcoholic HEPATITIS PANEL, ACUTE Routine 09/16/2023 9:16 AM CDT Elevated liver enzymes from Last 3 Months or Most Recently Relevant to Health Maintenance Results * (ABNORMAL) Hepatic function panel (09/30/2024 9:01 AM CDT) Protein, Total 8.1 6.4 - 8.4 g/dL [facility] Albumin 4.9 3.6 - 5.1 g/dL [facility] Globulin 3.2 2.2 - 4.0 g/dL (calc) [facility] Alb/glob ratio 1.5 0.9 - 2.3 (calc) [facility] Bilirubin, total 0.7 0.2 - 1.2 mg/dL [facility] Bilirubin, direct 0.2 < OR = 0.2 mg/dL [facility] Bilirubin, indirect 0.5 0.2 - 1.2 mg/dL (calc) [facility] Alk phos 55 36 - 130 U/L [facility] AST 40 10 - 40 U/L [facility] ALT (SGPT) 98(H) 9 - 46 U/L [facility] Blood 09/30/2024 9:01 AM CDT 09/30/2024 9:01 AM CDT Narrative [facility] - 10/01/2024 3:57 AM CDT FASTING:YES FASTING: YES Dale Leija MD LAB BLOOD ORDERABLES F inal Result [facility] [address] [place] [address] * Hepatitis panel, acute Blood (09/16/2023 9:16 AM CDT) Hep A IgM NON-REACTI VE NON-REACT BLAKE [facility] Comment: For additional information, please refer to http://[employer].Ceon/faq/UGJ348 (This link is being provided for informational/ educational purposes only.) HepBsAg NON-REACTI VE NON-REACT BLAKE [facility] Comment: For additional information, please refer to http://[employer].Ceon/faq/UMU797 (This link is being provided for informational/ educational purposes only.) Hep B core IgM NON-REACTI VE NON-REACT BLAKE [facility] Comment: For additional information, please refer to http://[employer].Ceon/faq/WJU780 (This link is being provided for informational/ educational purposes only.) Hep C Ab NON-REACTI VE NON-REACT BLAKE [facility] Comment: HCV antibody was non-reactive. There is no laboratory evidence of HCV infection. In most cases, no further action is required. However, if recent HCV exposure is suspected, a test for HCV RNA (test code 87842) is suggested. For additional information please refer to http://education.Ceon/faq/HZN77n0 (This link is being provided for informational/ educational purposes only.) Blood 09/16/2023 9:16 AM CDT 09/16/2023 9:17 AM CDT Dale Leija MD LAB MICROBIOLOGY - GEN ERAL ORDERABLES Final Result [facility] [address] [place] [address] from Last 3 Months or Most Recently Relevant to Health Maintenance Insurance [facility] Advance Directives For more information, please contact: [phone] * Full Code (Latest Code Status on File) Date Activated Date Inactivated Comments 10/30/2022 8:01 AM 10/30/2022 8:14 PM * Full Code Date Activated Date Inactivated Comments 01/13/2019 11:58 AM 01/13/2019 11:37 PM * Full Code Date Activated Date Inactivated Comments 01/13/2019 11:57 AM 01/13/2019 11:58 AM * Full Code Date Activated Date Inactivated Comments 11/22/2018 11:50 PM 11/24/2018 8:07 PM Care Teams Instrument [employer]airer [employer] Relationship Specialty Start Date End Date Holland Herrera MD PCP - General 11/22/18
[2024-12-29 08:52] VITALS: BP 145/97; PULSE 87; RESP 18; TEMP 36.1; O2SAT 99
[2024-12-29] MEDS: LACTATED RINGERS 1,000 ML 150 ML IV CONT (09:03)
--- NOTE | 2024-12-29 09:10 | P.PNAN_ITS ---
Anes - Initial Pre Proc Eval Procedure: Operation Date: 12/29/24 10:00 Proposed Procedures p Screening Colonoscopy - Rich Rhodes MD Date/Time: 12/29/24 09:10 Surgeon: Rich Rhodes MD Pre Op Diagnosis: Personal history of colon polyps, unspecified Patient Data Age: 44 Gender: M Height: 1.85 m Weight: 96.9 kg Last Vital Signs Temp 97 F L 12/29/24 08:52 Pulse 87 12/29/24 08:52 Resp 18 12/29/24 08:52 BP 145/97 H 12/29/24 08:52 Pulse Ox 99 12/29/24 08:52 O2 Del Method Room Air 12/29/24 08:52 Allergies Allergy/AdvReac Type Severity Reaction Status Date / Time vilazodone (From Viibryd) AdvReac Severe Agitated Verified 12/29/24 08:50 Home Medications ?Medication ?Instructions ?Recorded ?Confirmed ?Type CPAP #1 ea 09/02/23 03/30/24 Rx lisinopril 10 mg tablet 10 mg PO DAILY #90 tabs 09/2912/29/24 Rx metoprolol succinate 100 mg 100 mg PO DAILY #90 tabs 0 10/14/24 12/29/24 Rx tablet,extended release 24 hr protriptyline 5 mg tablet 10 mg (2 x 5 mg) PO DAILY #1 80 tabs 10/14/24 12/29/24 Rx Patient hx anesthesia problems: other ( reports he requires more anesthesia and then wakes up quickly. ) Family hx anesthesia problems: none Results Review: All pre-operative results and documents have been reviewed as part of the pre- operative evaluation. [facility] Past Medical History Medical History Right renal stone Ureteral calculus, right Alcohol use Transaminitis Memory loss Following meningitis in 2019 Hearing loss Trigeminal neuralgia of right side of face Calculus of kidney Chronic daily headache Dyspepsia Elevated liver enzymes Essential (primary) hypertension Sleep disorder, shift-work Surgical History Surgical History History of wisdom tooth extraction History of knee surgery History of vasectomy Family History Family History Grandparent Diabetes mellitus Mother Family history of malignant neoplasm of breast Hypertension Cholecystitis Sibling Hypertension Cholecystitis Father Family history of renal cell carcinoma Social History Social History Social History: Caffeine-coffee Smoking packs per day: 1 Smoking cigarettes per day: 20.0 Years smoked: 7 Smoking pack-years: 7.00 Smoking status: Former smoker Tobacco type: cigarettes Second hand tobacco smoke exposure: No Smoking end date: 04/01/11 Alcohol intake: current Drinks per week: 30 Alcohol use details: Occasional Substance use: never Substance use type: does not use Last use: 09/22/21 Lack of Transportation: No Lack of Food: Never True Current Housing: I Have Housing Concerned About Future Housing: No Difficulty Paying Gas/Electric Bills: No Difficulty Paying for Meds: No Currently Unemployed: No Education: High School Diploma/GED Difficulty w/ Childcare or Family Care: No Spiritual care concerns: No Anes - Eval Final PreProcedure Day of Procedure 12/29/24 09:10 Patient weight: overweight Lungs: normal air movement Airway: Mallampati scale class II Neurological: alert and oriented Last oral intake: >/= 8 hours ASA classification: II Emergent: no Anesthetic plan: proceed Anesthesia type and monitoring: general GIVS and standard monitoring Results Review: All pre-operative results and documents have been reviewed as part of the pre- operative evaluation. HTN, RONNA but not able to tolerate CPAP, active physical job, no cp or sob w his work. ETOH use several days/week, difficult to quantitate due to nature of his shift work schedule. Informed Consent: The patient's anesthetic plan and its attendant risks and benefits were discussed with the patient/family/POA. Questions were solicited and answers provided to the satisfaction of the patient/family/POA.
--- NOTE | 2024-12-29 09:39 | PM.HPGS ---
History of Present Illness History of Present Illness Consent: Risks, benefits, and alternatives have been discussed and questions answered. Patient agrees to proceed with procedure. Chief complaint: Personal history of colon polyps, unspecified Narrative: Kiko Monroy is a 44 year old male with colon polyps in 2021 Review of Systems Review of Systems: All systems reviewed & are unremarkable except as noted in HPI and below PMFSH Past Medical History Medical History (Updated 12/29/24 @ 09:40 by Rich Rhodes MD) Adenomatous colon polyp Right renal stone Ureteral calculus, right Alcohol use Transaminitis Memory loss Following meningitis in 2019 Hearing loss Trigeminal neuralgia of right side of face Calculus of kidney Chronic daily headache Dyspepsia Elevated liver enzymes Essential (primary) hypertension Sleep disorder, shift-work Surgical History Surgical History History of wisdom tooth extraction History of knee surgery History of vasectomy Family History Family History Grandparent Diabetes mellitus Mother Family history of malignant neoplasm of breast Hypertension Cholecystitis Sibling Hypertension Cholecystitis Father Family history of renal cell carcinoma Social History Social History Social History: Caffeine-coffee Smoking packs per day: 1 Smoking cigarettes per day: 20.0 Years smoked: 7 Smoking pack-years: 7.00 Smoking status: Former smoker Tobacco type: cigarettes Second hand tobacco smoke exposure: No Smoking end date: 04/01/11 Alcohol intake: current Drinks per week: 30 Alcohol use details: Occasional Substance use: never Substance use type: does not use Last use: 09/22/21 Lack of Transportation: No Lack of Food: Never True Current Housing: I Have Housing Concerned About Future Housing: No Difficulty Paying Gas/Electric Bills: No Difficulty Paying for Meds: No Currently Unemployed: No Education: High School Diploma/GED Difficulty w/ Childcare or Family Care: No Spiritual care concerns: No Meds Home Medications and Allergies Home Medications ?Medication ?Instructions ?Recorded ?Confirmed ?Type CPAP #1 ea 09/02/23 03/30/24 Rx lisinopril 10 mg tablet 10 mg PO DAILY #90 tabs 10/14/24 12/29/24 Rx metoprolol succinate 100 mg 100 mg PO DAILY #90 tabs 10/14/24 12/29/24 Rx tablet,extended release 24 hr protriptyline 5 mg tablet 10 mg (2 x 5 mg) PO DAILY #180 tabs 10/14/24 12/29/24 Rx Allergies Allergy/AdvReac Type Severity Reaction Status Date / Time vilazodone (From Viibryd) AdvReac Severe Agitated Verified 12/29/24 08:50 Vital Signs Vital Signs - 24 hr 12/29/24 08:52 Temperature 97 F L Pulse Rate 87 Respiratory Rate 18 Blood Pressure 145/97 H Pulse Oximetry 99 Oxygen Delivery Room Air Exam Const: General: comfortable and no acute distress HENMT: Face/Nose/Sinus: Normal nares present Eyes: General: appearance normal, both eyes and all related structures Resp: Auscultation: clear to auscultation bilaterally Cardio: Rate: regular rate Rhythm: regular rhythm GI: Inspection: non-distended GI Palp: Yes Soft to palpation Skin: General skin exam: normal color Extrem: General: normal to inspection Psych: Mental Status: mental status grossly normal Assessment and Plan Assessment and plan (1) Adenomatous colon polyp: Code(s): D12.6 - Benign neoplasm of colon, unspecified Status: Acute Assessment and Plan: colonoscopy
[2024-12-29 09:55] VITALS: BP 108/72; PULSE 79; RESP 19; O2SAT 97
[2024-12-29 10:05] VITALS: BP 103/76; PULSE 78; RESP 20; O2SAT 100
[2024-12-29 10:14] VITALS: BP 133/89; PULSE 97; RESP 19; O2SAT 98
== END 2024-12-29 10:36 | disposition home or self-care (01) ==
PROVIDERS: PCP Family Medicine; Referring Provider Internal Medicine Gastroenterology; Visit Provider Internal Medicine Gastroenterology
PROC: 0DJD8ZZ Inspection of Lower Intestinal Tract, Via Natural or Artificial Opening Endoscopic (ICD-10-PCS; CPT 45378; principal; 2024-12-29 10:00)
DX: Z12.11 Encounter for screening for malignant neoplasm of colon (principal); K64.8 Other hemorrhoids; I10 Essential (primary) hypertension; R51.9 Headache, unspecified; G47.33 Obstructive sleep apnea (adult) (pediatric); Z99.89 Dependence on other enabling machines and devices; Z98.890 Other specified postprocedural states; Z86.0100 Personal history of colon polyps, unspecified; Z87.891 Personal history of nicotine dependence; Z87.442 Personal history of urinary calculi; Z80.3 Family history of malignant neoplasm of breast; Z80.51 Family history of malignant neoplasm of kidney
CPT/HCPCS: 45378; J2003; J2704; J7120